=== PATIENT | female | born 1955 | race Caucasian/White ===

== ENCOUNTER 2021-05-06 10:37 | Inpatient (IN) ==
--- NOTE | 2021-05-06 11:03 | ED.PDOC ---
General ED Provider: Dr. JO KITCHEN Chief Complaint: Weakness Stated Complaint: Diarrhea X 4 days. Stated feels very tired and is weak both at rest and with exertion Time Seen by Provider: 05/06/21 10:53 Mode of Arrival: Wheelchair Information Source: Patient Exam Limitations: No limitations Primary Care Provider: LUIS MANUEL COLE Nursing and Triage Documentation Reviewed and Agree: Yes Does patient meet sepsis criteria?: No System Inflammatory Response Syndrome: Not Applicable Sepsis Protocol: For patient's 13 years and over: Temp is 96.8 and below OR 101 and greater Pulse >90 BPM Resp >20/minute Acutely Altered Mental Status Are patient's symptoms suggestive of a new infection, such as: -Pneumonia -Skin, Soft Tissue -Endocarditis -UTI -Bone, Joint Infection -Implantable Device -Acute Abdominal Infection -Wound Infection -Meningitis -Blood Stream Catheter Infection -Unknown GI Complaint Exam Abdominal Pain Complaint/Exam Onset: Gradual Duration: 4 days Symptoms Are: Still present Timing: Constant Initial Severity: Mild Current Severity: Moderate Location of Pain: RUQ, LUQ and Epigastric Radiates To: Reports Back Character: Reports Sharp, Aching and Cramping Aggravating: Reports Food Alleviating: Reports None Associated Signs and Symptoms: Reports Dizziness; Denies Diaphoresis, Fever, Cough, Chest pain, Back pain, Constipation, Blood in stool, Dysuria, Urinary frequency, Decreased urine output, Decreased appetite, Vaginal bleeding, Vaginal discharge, Nausea, Vomiting, Diarrhea, Sore throat or Decreased activity AAA Risk Factors: Reports None Cardiac Risk Factors: Reports None Ectopic Risk Factors: Reports None Ovarian Torsion Risk Factors: Reports None Surgical Obstruction Risk Factors: Reports None Abdominal Findings: Absent Pulsatile mass, Abdominal distention, Unequal femoral pulses, Rebound tenderness, McBurney's Point tender, CVA Tenderness, Hernia or Inguinal swelling Adnexal Exam: Present Normal Findings Differential Diagnoses: Gastroenteritis and Other (COVID) Vomiting/Diarrhea Complaint/Exam Onset/Duration: 4 days Symptoms Are: Worse Initial Severity: Severe Current Severity: Moderate Character of Vomiting: Reports Non-bilious Character of Diarrhea: Reports Watery Aggravating: Reports Food and Liquids Alleviating: Reports None Associated Signs and Symptoms: Reports Light-headedness Related History: Reports Similar episode Last Bowel Movement: This AM Review of Systems Review Of Systems Constitutional: Reports Weakness and Loss of appetite Eyes: Reports No symptoms Ears, Nose, Mouth, Throat: Reports No symptoms Respiratory: Reports Short of air (slight) Cardiac: Reports No symptoms GI: Reports Abdominal pain and Diarrhea : Reports No symptoms, Burning and Dysuria Skin: Reports No symptoms, Bruising and Change in color Neurological: Reports No symptoms Hematologic/Lymphatic: Reports No symptoms and Anemia All Other Systems: Reviewed and Negative COUNTS INCLUDE 234 BEDS AT THE [facility] Medical History (Updated 05/06/21 @ 17:09 by LAYLA ESPINOZA RN) Anxiety Bilateral artificial lens implant Hypertension Family History Mother Diabetes Hypertension FATHER Cancer Hypertension Sister Hypertension PATERNAL GRANDMOTHER Stroke Social History Smoking and tobacco status: Never smoker Alcohol intake: never Substance use type: does not use Yenny/baptism: ZOROASTRIANISM Surgical History H/O knee surgery Status post tonsillectomy Female Reproductive History Menstrual Hx Hysterectomy: No Hx Tubal Ligation: No Physical Exam Physical Exam Appearance: Reports Well-appearing Ill-appearing: Mild Pain Distress: Mild Eyes: Reports MANDIE, EOMI, Conjunctiva clear and Conjunctiva inflammed ENT: Reports Ears normal, Nose normal, Oropharynx normal and TMs Occluded Neck: Supple Respiratory: Reports Airway patent Cardiovascular: Reports RRR and Pulses normal GI/: Reports Soft and Nontender Musculoskeletal: Reports Normal strength, ROM intact and No edema Skin: Reports Warm, Dry and Normal color Neurological: Reports Sensation intact, Motor intact, Reflexes intact, Cranial nerves intact, Alert and Oriented Psychiatric: Reports Affect appropriate and Mood appropriate Interpretation Radiology Interpretation Exam Interpreted: CT Scan (Limited study without contrast.No acute intra- abdominal abnormality. No obstructing ureteral stones. 2. The appendix is normal. 3. Mild distension of the gallbladder. 4. Atherosclerotic disease aorta.) Critical Care Note Critical Care Note Total Critical Care Time (mins): 60 Course Course Hematology/Chemistry: 05/06/21 11:18 05/06/21 11:18 Orders, Labs, Meds: Lab Review 05/06/21 05/06/21 05/06/21 11:18 11:18 11:18 WBC 5.19 RBC 4.87 Hgb 14.2 Hct 42.1 MCV 86.4 MCH 29.2 MCHC 33.7 RDW Coeff of Sarah 12.8 Plt Count 185 Immature Gran % (Auto) 0.4 Neut % (Auto) 64.3 Lymph % (Auto) 19.5 Republic % (Auto) 15.4 H Eos % (Auto) 0.0 Baso % (Auto) 0.4 Neut # (Auto) 3.3 Lymph # (Auto) 1.0 Republic # (Auto) 0.8 Eos # (Auto) 0.0 Baso # (Auto) 0.0 Immature Gran # (Auto) 0.0 ESR 12 Puncture Site Base Excess O2 Saturation ABG pH ABG pCO2 ABG pO2 ABG HCO3 ABG Total CO2 Wil Test Hemoglobin Oxyhemoglobin Carboxyhemoglobin Total Hemoglobin FiO2 % Sodium 132.9 L Potassium 3.53 Chloride 101.8 Carbon Dioxide 21.8 L Anion Gap 12.83 BUN 13.1 Creatinine 0.63 Estimated GFR (MDRD) 94.00 BUN/Creatinine Ratio 20.79 Glucose 123.0 H Lactic Acid Calcium 8.38 L Magnesium 2.07 Total Bilirubin 0.73 AST 55.3 H ALT 50.6 H Alkaline Phosphatase 62.3 Total Protein 6.89 Albumin 4.02 Globulin 2.87 Albumin/Globulin Ratio 1.40 Amylase 89.2 Lipase 170.5 Procalcitonin Urine Opiates Screen Ur Oxycodone Screen Urine Methadone Screen Ur Propoxyphene Screen Ur Barbiturates Screen U Tricyclic Antidepress Ur Phencyclidine Scrn Ur Amphetamine Screen U Methamphetamines Scrn U Benzodiazepines Scrn Urine Cocaine Screen U Cannabinoids Screen Influ A Molecular Assay Influ B Molecular Assay SARS CoV-2 RNA Rapid DANNY 05/06/21 05/06/21 05/06/21 11:18 11:18 11:33 WBC RBC Hgb Hct MCV MCH MCHC RDW Coeff of Sarah Plt Count Immature Gran % (Auto) Neut % (Auto) Lymph % (Auto) Republic % (Auto) Eos % (Auto) Baso % (Auto) Neut # (Auto) Lymph # (Auto) Republic # (Auto) Eos # (Auto) Baso # (Auto) Immature Gran # (Auto) ESR Puncture Site Base Excess O2 Saturation ABG pH ABG pCO2 ABG pO2 ABG HCO3 ABG Total CO2 Wil Test Hemoglobin Oxyhemoglobin Carboxyhemoglobin Total Hemoglobin FiO2 % Sodium Potassium Chloride Carbon Dioxide Anion Gap BUN Creatinine Estimated GFR (MDRD) BUN/Creatinine Ratio Glucose Lactic Acid 1.36 Calcium Magnesium Total Bilirubin AST ALT Alkaline Phosphatase Total Protein Albumin Globulin Albumin/Globulin Ratio Amylase Lipase Procalcitonin < 0.05 Urine Opiates Screen Ur Oxycodone Screen Urine Methadone Screen Ur Propoxyphene Screen Ur Barbiturates Screen U Tricyclic Antidepress Ur Phencyclidine Scrn Ur Amphetamine Screen U Methamphetamines Scrn U Benzodiazepines Scrn Urine Cocaine Screen U Cannabinoids Screen Influ A Molecular Assay Influ B Molecular Assay SARS CoV-2 RNA Rapid DANNY Positive H 05/06/21 05/06/21 05/06/21 11:33 14:05 15:05 WBC RBC Hgb Hct MCV MCH MCHC RDW Coeff of Sarah Plt Count Immature Gran % (Auto) Neut % (Auto) Lymph % (Auto) Republic % (Auto) Eos % (Auto) Baso % (Auto) Neut # (Auto) Lymph # (Auto) Republic # (Auto) Eos # (Auto) Baso # (Auto) Immature Gran # (Auto) ESR Puncture Site Rr Base Excess -3.1 L O2 Saturation 93.5 L ABG pH 7.44 ABG pCO2 31.0 L ABG pO2 66.0 L ABG HCO3 21.1 ABG Total CO2 22.1 Wil Test Pos Hemoglobin 0.8 Oxyhemoglobin 93.4 L Carboxyhemoglobin 1.2 Total Hemoglobin 14.2 FiO2 % 21.0 Sodium Potassium Chloride Carbon Dioxide Anion Gap BUN Creatinine Estimated GFR (MDRD) BUN/Creatinine Ratio Glucose Lactic Acid Calcium Magnesium Total Bilirubin AST ALT Alkaline Phosphatase Total Protein Albumin Globulin Albumin/Globulin Ratio Amylase Lipase Procalcitonin Urine Opiates Screen Negative Ur Oxycodone Screen Negative Urine Methadone Screen Negative Ur Propoxyphene Screen Negative Ur Barbiturates Screen Negative U Tricyclic Antidepress Negative Ur Phencyclidine Scrn Negative Ur Amphetamine Screen Negative U Methamphetamines Scrn Negative U Benzodiazepines Scrn Negative Urine Cocaine Screen Negative U Cannabinoids Screen Negative Influ A Molecular Assay Negative by naat Influ B Molecular Assay Negative by naat SARS CoV-2 RNA Rapid DANNY Orders Category Date Time Status ADMIT PATIENT INPATIENT .TO SCU (MONITORED BED) ADMISSION 05/06/21 15:53 Active ABG DRAW REQUEST DAILY@0600 CARDIO 05/07/21 06:00 Completed ABG DRAW REQUEST DAILY@0600 CARDIO 05/08/21 06:00 Ordered ABG DRAW REQUEST Stat CARDIO 05/06/21 13:54 Completed EKG-(ED ONLY) Stat CARDIO 05/06/21 13:54 Completed CONTINUOUS PULSE OX (NURSING) PULSEOX CARE 05/06/21 15:55 Active NPO REMINDER: IMAGING ONCE CARE 05/06/21 14:39 Completed TELEMETRY MONITORING TELE CARE 05/06/21 15:53 Active TELEMETRY MONITORING TELE CARE 05/06/21 15:55 Completed IV [ED IV/MEDIPORT/POWERPORT] .ONCE EMERGENCY 05/06/21 10:56 Active ABG COOX DAILY@0600 LAB 05/07/21 05:10 Completed ABG COOX DAILY@0600 LAB 05/08/21 06:00 Ordered ABG COOX Stat LAB 05/06/21 14:05 Completed AMYLASE Stat LAB 05/06/21 11:18 Completed BLOOD CULTURE (ED ONLY) Stat LAB 05/06/21 11:18 Results C-REACTIVE PROTEIN DAILY@0600 LAB 05/07/21 05:20 Received C-REACTIVE PROTEIN DAILY@0600 LAB 05/08/21 06:00 Ordered CBC W/ AUTO DIFF Stat LAB 05/06/21 11:18 Completed CMP [COMPREHENSIVE METABOLIC PANEL] Stat LAB 05/06/21 11:18 Completed ESR Stat LAB 05/06/21 11:18 Completed FERRITIN Routine LAB 05/07/21 05:20 Completed FLU A & B MOLECULAR [FLU A/B MOLECULAR] Stat LAB 05/06/21 11:33 Completed LACTIC ACID Stat LAB 05/06/21 11:18 Completed LIPASE Stat LAB 05/06/21 11:18 Completed MAGNESIUM Stat LAB 05/06/21 11:18 Completed PROCALCITONIN Stat LAB 05/06/21 11:18 Completed PT WITH INR DAILY@0600 LAB 05/07/21 05:20 Completed PT WITH INR DAILY@0600 LAB 05/08/21 06:00 Ordered RAPID STREP SCREEN [MOLECULAR GROUP A STREP] Stat LAB 05/06/21 10:57 Ordered SARS COV-2 RNA RAPID DANNY Stat LAB 05/06/21 11:33 Completed TROPONIN I Routine LAB 05/06/21 15:55 Completed URINE DRUG SCREEN (RAPID FOR ED) [DRUG SCREEN, URINE, LAB 05/06/21 15:05 Completed RAPID] Stat 0.9 % Sodium Chloride [Saline Flush] MEDS 05/06/21 10:56 Active 1 syr IVF PRN PRN Dexamethasone Sod Phosphate [Decadron] MEDS 05/07/21 09:00 Active 6 mg IM DAILY Dexamethasone Sod Phosphate [Decadron] MEDS 05/06/21 12:43 Discontinued 6 mg IVP ONCE STA Remdesivir Solution [Veklury] 200 mg MEDS 05/06/21 15:55 Discontinued 0.9 % Sodium Chloride [Sodium Chloride] 250 ml IV ONCE CHEST, 1V AP ONLY Stat RADS 05/06/21 12:[address] ABDOMEN/PELVIS WO CONTRAST Stat RADS 05/06/21 10:[address] CHEST W/CONTRAST Stat RADS 05/06/21 14:39 Completed Medications Generic Name Dose Route Start Last Admin Trade Name Freq PRN Reason Stop Dose Admin Albuterol Sulfate 2 puff 05/07/21 06:00 05/07/21 14:22 Albuterol Sulfate (Ventolin Hfa) 18 Gm 1 Puff With Spacer IH 2 puff RTQID AMALIA Administration Azithromycin 500 mg 05/06/21 21:00 05/06/21 21:27 Azithromycin 250 Mg Tablet PO 05/08/21 21:01 500 mg 2100 AMALIA Administration Bisoprolol Fumarate 5 mg 05/06/21 17:30 05/07/21 09:31 Bisoprolol Fumarate 5 Mg Tablet PO 5 mg DAILY AMALIA Administration Budesonide/Formoterol Fumarate 2 puff 05/06/21 21:00 05/07/21 09:32 Budesonide/Formoterol Fumarate 160/4.5 Mcg Inhaler IH 2 puff BID AMALIA Administration Dexamethasone Sodium Phosphate 6 mg 05/07/21 09:00 05/07/21 09:31 Dexamethasone Sod Phos 10 Mg/Ml Inj IM 6 mg DAILY AMALIA Administration Diazepam 2 mg 05/06/21 17:13 05/07/21 02:49 Diazepam 2 Mg Tablet PO 2 mg .2-3 Times Daily PRN Administration Anxiety Famotidine 40 mg 05/07/21 06:30 05/07/21 05:55 Famotidine 20 Mg Tablet PO 40 mg BIDAC AMALIA Administration Losartan Potassium 100 mg 05/06/21 17:30 05/07/21 09:31 Losartan Potassium 100 Mg Tablet PO 100 mg DAILY AMALIA Administration Sodium Chloride 1 syr 05/06/21 10:56 05/06/21 21:28 0.9% Sodium Chloride 10 Ml Disp.Syrin IVF 1 syr PRN PRN Administration To flush IV Discontinued Medications Generic Name Dose Route Start Last Admin Trade Name Freq PRN Reason Stop Dose Admin Albuterol Sulfate 2 puff 05/06/21 21:00 05/06/21 21:37 Albuterol Sulfate (Ventolin Hfa) 18 Gm 1 Puff With Spacer IH 2 puff TID AMALIA Administration Azithromycin 500 mg 05/07/21 09:00 Azithromycin 250 Mg Tablet PO 05/09/21 09:01 DAILY AMALIA Dexamethasone Sodium Phosphate 6 mg 05/06/21 12:43 05/06/21 12:52 Dexamethasone Sod Phos 10 Mg/Ml Inj IVP 05/06/21 12:44 6 mg ONCE STA Administration REMDESIVIR SOLUTION 200 mg/ 290 mls @ 145 mls/hr 05/06/21 15:55 05/06/21 17:14 Sodium Chloride IV 05/06/21 17:54 Not Given ONCE ONE Vital Signs: Temp Pulse Resp BP Pulse Ox 05/06/21 10:38 97 F L 89 18 146/88 H 95 Discharge Plan Discharge Patient Disposition: ADMITTED INPATIENT Discharge Problem: COVID ED Provider: JO KITCHEN Condition: Stable Physician Progress Note: []
--- NOTE | 2021-05-06 11:23 | CT ---
EXAM: Noncontrast CT of the abdomen and pelvis. HISTORY: Diarrhea for 4 days. COMPARISON: 12/12/2018 TECHNIQUE: Contiguous axial images at 3 mm intervals were obtained from lung bases through the pelvi s. No contrast was given. Coronal reformats were reviewed. FINDINGS: The study is limited without contrast. CHEST: LUNG BASES: Scattered oval ground-glass opacities seen in the right lung base and lingula. HEART: The heart size is within normal limits.Coronary calcifications are seen. ABDOMEN: Evaluation of the soft tissue organs is limited without contrast. LIVER: Noncontrast images of the liver show no solid mass lesion or intrahepatic ductal dilatation. BILIARY: The gallbladder is mildly distended. No gallstones are noted. No pericholecystic fluid o r inflammation. The common bile duct is normal. SPLEEN: The spleen is unremarkable. PANCREAS: The pancreas shows no mass lesion or peripancreatic inflammation. ADRENAL GLANDS: The adrenal glands are normal. RENAL: The kidneys show no hydronephrosis or nephrolithiasis. There are no obstructing ureteral st ones. No solid mass lesions are identified. AORTA: Moderate aortic calcifications are seen. No aneurysm is identified. RETROPERITONEUM: There is no retroperitoneal or mesenteric adenopathy. BOWEL: The bowel is unopacified. There is no obstruction or inflammatory change. There is no free fluid or free air. No significant inflammatory changes are seen. The appendix is identified and is normal. PELVIS: BLADDER: The bladder is not well distended which limits evaluation.. GENITOURINARY STRUCTURES: The uterus and ovaries are unremarkable. OSSEOUS STRUCTURES: Degenerative changes of the lumbar spine. Anterolisthesis of L4 on L5 IMPRESSION 1. Limited study without contrast.No acute intra-abdominal abnormality. No obstructing ureteral sto livia. 2. The appendix is normal. 3. Mild distension of the gallbladder. 4. Atherosclerotic disease aorta. All CT scans are performed using dose optimization techniques as appropriate to the performed exam an d include at least one of the following: Automated exposure control, adjustment of the mA and/or kV according t o size, and the use of iterative reconstruction technique.
[2021-05-06 11:42] LABS: ALANINE AMINOTRANSFERASE 50.6 U/L (0-35); ALBUMIN 4.02 g/dL (3.5-5.0); ALKALINE PHOSPHATASE 62.3 U/L (53-141); AMYLASE 89.2 U/L (30-110); ASPARTATE AMINO TRANSFERASE 55.3 U/L (14-36); BILIRUBIN,TOTAL 0.73 mg/dL (0.2-1.3); BLOOD UREA NITROGEN 13.1 mg/dL (7-17); CALCIUM 8.38 mg/dL (8.4-10.2); CARBON DIOXIDE 21.8 mmol/L (22-30.0); CHLORIDE 101.8 mmol/L (98-107); CREATININE 0.63 mg/dL (0.60-1.30); LIPASE 170.5 U/L (23-300); MAGNESIUM 2.07 mg/dL (1.6-2.3); POTASSIUM 3.53 mmol/L (3.5-5.1); SODIUM 132.9 mmol/L (134.5-145); TOTAL PROTEIN 6.89 g/dL (6.3-8.2)
[2021-05-06 12:04] LABS: ERYTHROCYTE SEDIMENTATION RATE 12 mm/hr (0-20)
[2021-05-06 12:06] LABS: MOLECULAR FLU A NEGATIVE BY NAAT (NEGATIVE); MOLECULAR FLU B NEGATIVE BY NAAT (NEGATIVE)
[2021-05-06 12:20] LABS: BASOPHILS % (AUTO) 0.4 % (0.0-3.0); HEMATOCRIT 42.1 % (37.0-47.0); HEMOGLOBIN 14.2 g/dl (12.0-16.0); IMMATURE GRANULOCYTE % (AUTO) 0.4 % (0.0-5.0); LYMPHOCYTES % (AUTO) 19.5 (10.0-50.0); MEAN CORPUSCULAR HEMOGLOBIN 29.2 pg (27.0-31.0); MEAN CORPUSCULAR HGB CONC 33.7 (31.8-35.4); MEAN CORPUSCULAR VOLUME 86.4 fl (81.0-99.0); MONOCYTES # (AUTO) 0.8 K/uL (0.4-2.0); MONOCYTES % (AUTO) 15.4 (0-10); NEUTROPHILS # (AUTO) 3.3 K/ul (2.0-6.9); NEUTROPHILS % (AUTO) 64.3 % (42.2-75.2); PLATELET COUNT 185 10^3/uL (140-440); RDW COEFFICIENT OF VARIATION 12.8 % (11.6-14.8); RED BLOOD COUNT 4.87 10^6/ul (4.20-5.40); WHITE BLOOD COUNT 5.19 K/ul (4.6-10.2)
--- NOTE | 2021-05-06 12:23 | DI ---
EXAM: Chest one view, frontal view only. HISTORY: Cough. COMPARISON: None. FINDINGS: The heart size is normal. There is no pulmonary vascular congestion. Bilateral areas of consolidation noted. No pleural effusion or pneumothorax is seen. No acute osseous abnormality is i dentified. IMPRESSION: Bilateral pneumonia.
[2021-05-06] MEDS ORDERED: DECADRON IVP STA (12:43)
[2021-05-06 14:16] LABS: ABG O2 HGB 93.4 % (95-100); ABG PH 7.44 (7.35-7.45); BEecf -3.1 (-2.0-3.0); COHb 1.2 (0.5-1.5); HCO3 21.1 (21-28); MetHb 0.8 (0-1.5); TCO2 22.1 (19-24); sO2 93.5 % (94-98); tHb 14.2 g/dl (11.7-17.4)
[2021-05-06 15:23] LABS: AMPHETAMINE SCREEN,URINE NEGATIVE (NEGATIVE); BARBITURATE SCREEN,URINE NEGATIVE (NEGATIVE); BENZODIAZEPINES SCREEN,URINE NEGATIVE (NEGATIVE); CANNABINOID SCREEN,URINE NEGATIVE (NEGATIVE); COCAIN SCREEN,URINE NEGATIVE (NEGATIVE); METHADONE URINE SCREEN NEGATIVE (NEGATIVE); METHAMPHETAMINES SCREEN,URINE NEGATIVE (NEGATIVE); OPIATE SCREEN,URINE NEGATIVE (NEGATIVE); OXYCODONE URINE SCREEN NEGATIVE (NEGATIVE); PHENCYCLIDINE SCREEN,URINE NEGATIVE (NEGATIVE); PROPOXYPHENE URINE SCREEN NEGATIVE (NEGATIVE); TRICYCLIC ANTIDEPRESSANTS URIN NEGATIVE (NEGATIVE)
--- NOTE | 2021-05-06 15:39 | CT ---
EXAM: CT chest with contrast HISTORY: COVID-19 positive patient COMPARISON: Chest x-ray same day TECHNIQUE: Serial axial images of the chest were obtained after 75 ml of Omnipaque IV contrast was a dministered. These were obtained from the lung apices to the upper abdomen. FINDINGS: The thyroid is normal. Visualized vessels the demonstrate mild calcific atherosclerotic d isease. There is no dissection, aneurysm or stenosis. The heart is normal in size without pericardi al effusion. There is no mediastinal, hilar or axillary pathologically enlarged lymph nodes. There is no pneumothorax or pleural effusion. There are patchy bilateral ground-glass opacities. Th ere is no discrete consolidation, nodule or mass. The airways are patent. Limited views of the soft tissues in the upper abdomen demonstrate distended gallbladder. The osseo us structures demonstrate degenerative disease. IMPRESSION: 1. Patchy bilateral ground-glass opacities consistent with atypical pneumonia. 2. Mild calcific atherosclerotic disease. 3. Distended gallbladder. All CT scans are performed using dose optimization techniques as appropriate to the performed exam an d include at least one of the following: Automated exposure control, adjustment of the mA and/or kV according t o size, and the use of iterative reconstruction technique.
[2021-05-06] MEDS ORDERED: VEKLURY 200 MG in SODIUM CHLORIDE 250 ML IV ONE (15:55)
[2021-05-06] MEDS ORDERED: VEKLURY 100 MG in SODIUM CHLORIDE 250 ML IV SCH (16:00)
[2021-05-06 17:07] VITALS: BMI 35.9
[2021-05-06] MEDS ORDERED: VENTOLIN HFA (PER PUFF-WITH SPACER) IH SCH (21:00)
[2021-05-06] MEDS: ZITHROMAX PO SCH (21:27)
[2021-05-06] MEDS: ZEBETA PO SCH (21:28)
[2021-05-06] MEDS: COZAAR PO SCH (21:28)
[2021-05-06] MEDS: SYMBICORT 160-4.5 MCG INHALER IH SCH (21:28)
[2021-05-07] MEDS: VALIUM PO PRN ×2 (02:49→22:34)
[2021-05-07 05:20] LABS: ABG O2 HGB 91.8 % (95-100); ABG PH 7.43 (7.35-7.45); BEecf -2.4 (-2.0-3.0); COHb 2.1 (0.5-1.5); HCO3 21.9 (21-28); MetHb 0.7 (0-1.5); TCO2 22.9 (19-24); sO2 92.1 % (94-98); tHb 13.6 g/dl (11.7-17.4)
[2021-05-07] MEDS: PEPCID PO SCH ×2 (05:55→17:16)
[2021-05-07] MEDS: VENTOLIN HFA (PER PUFF-WITH SPACER) IH SCH ×4 (06:01→20:30)
[2021-05-07 07:05] LABS: PROTHROMBIN TIME 10.6 SEC (9.3-11.0)
[2021-05-07 07:36] LABS: TROPONIN I < 0.012 ng/ml (0.0000-0.120)
[2021-05-07] MEDS ORDERED: ZITHROMAX PO SCH (09:00)
[2021-05-07] MEDS: DECADRON IM SCH (09:31)
[2021-05-07] MEDS: COZAAR PO SCH (09:31)
[2021-05-07] MEDS: ZEBETA PO SCH (09:31)
[2021-05-07] MEDS: SYMBICORT 160-4.5 MCG INHALER IH SCH ×2 (09:32→21:54)
[2021-05-07] MEDS: ZITHROMAX PO SCH (21:42)
[2021-05-08 05:15] LABS: BASOPHILS % (AUTO) 0.2 % (0.0-3.0); HEMATOCRIT 39.7 % (37.0-47.0); HEMOGLOBIN 13.3 g/dl (12.0-16.0); IMMATURE GRANULOCYTE % (AUTO) 0.2 % (0.0-5.0); LYMPHOCYTES % (AUTO) 11.9 (10.0-50.0); MEAN CORPUSCULAR HEMOGLOBIN 29.2 pg (27.0-31.0); MEAN CORPUSCULAR HGB CONC 33.5 (31.8-35.4); MEAN CORPUSCULAR VOLUME 87.1 fl (81.0-99.0); MONOCYTES # (AUTO) 0.9 K/uL (0.4-2.0); MONOCYTES % (AUTO) 11.3 (0-10); NEUTROPHILS # (AUTO) 6.2 K/ul (2.0-6.9); NEUTROPHILS % (AUTO) 76.4 % (42.2-75.2); PLATELET COUNT 220 10^3/uL (140-440); RED BLOOD COUNT 4.56 10^6/ul (4.20-5.40); WHITE BLOOD COUNT 8.08 K/ul (4.6-10.2)
[2021-05-08 05:21] LABS: ALANINE AMINOTRANSFERASE 55.8 U/L (0-35); ALBUMIN 3.71 g/dL (3.5-5.0); ALKALINE PHOSPHATASE 58.8 U/L (53-141); BILIRUBIN,TOTAL 0.59 mg/dL (0.2-1.3); CALCIUM 8.83 mg/dL (8.4-10.2); CARBON DIOXIDE 22.9 mmol/L (22-30.0); CHLORIDE 105.6 mmol/L (98-107); CREATININE 0.56 mg/dL (0.60-1.30); GLUCOSE 122.6 mg/dL (74-106); POTASSIUM 3.92 mmol/L (3.5-5.1); SODIUM 135.4 mmol/L (134.5-145); TOTAL PROTEIN 6.49 g/dL (6.3-8.2)
[2021-05-08 05:29] LABS: PROTHROMBIN TIME 9.9 SEC (9.3-11.0)
[2021-05-08] MEDS: VENTOLIN HFA (PER PUFF-WITH SPACER) IH SCH ×4 (05:54→20:10)
[2021-05-08] MEDS: PEPCID PO SCH ×2 (05:54→17:04)
[2021-05-08 06:23] LABS: ABG O2 HGB 86.9 % (95-100); ABG PH 7.46 (7.35-7.45); BEecf -1.8 (-2.0-3.0); COHb 2.4 (0.5-1.5); MetHb 0.8 (0-1.5); sO2 86.6 % (94-98); tHb 13.5 g/dl (11.7-17.4)
[2021-05-08] MEDS: COZAAR PO SCH (08:49)
[2021-05-08] MEDS: ZEBETA PO SCH (08:49)
[2021-05-08] MEDS: DECADRON IM SCH (08:50)
[2021-05-08] MEDS: SYMBICORT 160-4.5 MCG INHALER IH SCH ×2 (08:55→20:24)
[2021-05-08 09:07] LABS: ABG O2 HGB 92.4 % (95-100); BEecf -2.1 (-2.0-3.0); COHb 2.1 (0.5-1.5); HCO3 21.1 (21-28); MetHb 0.8 (0-1.5); TCO2 21.9 (19-24); sO2 93.5 % (94-98); tHb 13.5 g/dl (11.7-17.4)
--- NOTE | 2021-05-08 09:12 | PCM.PROG ---
Attending Provider: ATTENDING PROVIDER: Dr. LUIS MANUEL COLE DATE OF SERVICE: 05/08/21 SUBJECTIVE: This 66 year old /WHITE F was hospitalized 05/06/21 with COVID pneumonia and respiratory failure. The patient arterial blood gasses on room air shows hypoxemia. The patient feels good as usual says she is much better than what she was. Appetite is normal. REVIEW OF SYSTEMS: CONSTITUTIONAL: No night sweats. No fatigue, malaise, lethargy. No fever or chills. HEENT: Eyes: No visual changes. No eye pain. No eye discharge. ENT: No runny nose. No epistaxis. No sinus pain. No odynophagia. No congestion. RESPIRATORY: No cough, no congestion. No hemoptysis. No shortness of breath. CARDIOVASCULAR: No angina symptoms. No CHF symptoms. No atypical chest pain for CAD. No palpitations. No orthopnea.. GASTROINTESTINAL: No abdominal pain. No nausea or vomiting. No diarrhea or con stipation. No hematemesis. No hematochezia. GENITOURINARY: No urgency. No frequency. No dysuria. No hematuria. No obstructive symptoms. No discharge. No pain. No significant abnormal bleeding. MUSCULOSKELETAL: No musculoskeletal pain; no joint swelling. NEUROLOGICAL: Awake, alert, oriented to time, place and person. No headache. No neck pain. No syncope. No seizures. No dizziness. PSYCHIATRIC: Not anxious. No depression. No suicidal thoughts. No homicidal thoughts. SKIN: No rash. No lesions. No wounds. ENDOCRINE: No unexplained weight loss. No weight gain. HEMATOLOGIC/LYMPHATIC: No anemia. No purpura. No petechiae. No prolonged or excessive bleeding. No palpable lymph nodes. PHYSICAL EXAMINATION: GENERAL: The patient is awake, alert and oriented, lying in bed in no distress. VITAL SIGNS: Temperature 98.0 F, Pulse 64, Respiratory Rate 18, BP 132/75, Pulse Ox 95% HEENT: Head normocephalic, atraumatic. Eyes: Extraocular muscles are intact. Pupils are equal, round and reactive to light and accommodation. Ears: No lesions. Nose appeared normal. Throat: No exudate or erythema. NECK: Supple. No JVD, no carotid bruit. No lymphadenopathy or thyromegaly. LUNGS: Good air entry. Clear to auscultation. Percussion note normal. Chest symmetrical. HEART: S1, S2, no S3. No murmurs. No cyanosis or clubbing. No ascites. Pulses: Dorsalis pedis and posterior tibial pulses +1 to +2 both sides. ABDOMEN: Soft. Non-tender. Bowel sounds active. No CVA tenderness. No mass felt. EXTREMITIES: No edema. Full range of motion of all extremities, equal. NEUROLOGIC: No focal deficit. Cranial nerves II through XII are grossly intact. No headache, no double vision or headache. SKIN: Warm and dry. Intact. Turgor-normal. LYMPHATIC: No palpable lymph nodes/no lymphedema. MUSCULOSKELETAL: Normal joints with no swelling. Muscle tone is normal. LAB REVIEW: 05/08/21 04:40 05/08/21 04:40 05/08/21 06:00: Puncture Site Lrad, Base Excess -1.8, O2 Saturation 86.6 L, ABG pH 7.46 H, ABG pCO2 31.0 L, ABG pO2 49.0 L*, ABG HCO3 22.0, ABG Total CO2 23.0, Wil Test +, Hemoglobin 0.8, Oxyhemoglobin 86.9 L, Carboxyhemoglobin 2.4 H, Total Hemoglobin 13.5, O2 Delivery Device Ra, FiO2 % 21.0 05/08/21 04:40: Sodium 135.4, Potassium 3.92, Chloride 105.6, Carbon Dioxide 22.9, Anion Gap 10.82, BUN 15.0, Creatinine 0.56 L, Estimated GFR (MDRD) 108.00, BUN/Creatinine Ratio 26.78, Glucose 122.6 H, Calcium 8.83, Total Bilirubin 0.59, AST 55.0 H, ALT 55.8 H, Alkaline Phosphatase 58.8, Total Protein 6.49, Albumin 3.71, Globulin 2.78, Albumin/Globulin Ratio 1.33 05/08/21 04:40: WBC 8.08, RBC 4.56, Hgb 13.3, Hct 39.7, MCV 87.1, MCH 29.2, MCHC 33.5, RDW Coeff of Sarah 13.0, Plt Count 220, Immature Gran % (Auto) 0.2, Neut % (Auto) 76.4 H, Lymph % (Auto) 11.9, Steele % (Auto) 11.3 H, Eos % (Auto) 0.0, Baso % (Auto) 0.2, Neut # (Auto) 6.2, Lymph # (Auto) 1.0, Steele # (Auto) 0.9, Eos # (Auto) 0.0, Baso # (Auto) 0.0, Immature Gran # (Auto) 0.0 05/08/21 04:40: PT 9.9, INR 0.95 05/07/21 06:20: Ferritin 729.00 H 05/07/21 06:20: D-Dimer 1176.47 H ASSESSMENT: Please see below. 1. Acute respiratory failure from COVID pneumonia 2. History of hypertension PLAN: 1. Continue to given antibiotics, oxygen and steroids. The patient refused Remdesivir. Plan and coordination of the patient's care discussed in the presence of Transmission Calibration Engineer and nurse. CONDITION: Stable SCRIBED BY: CORNEL REA Senior Mortgage Loan Processor scribed while in presence of service performed by Dr. LUIS MANUEL COLE on 05/08/21 ([id number])
[2021-05-08] MEDS: ELIQUIS PO SCH ×2 (09:26→20:23)
[2021-05-08] MEDS: ROCEPHIN 1 GM/50 ML D5W 1 GM/50 ML BAG IV SCH (09:26)
--- NOTE | 2021-05-08 13:16 | HP ---
DATE OF SERVICE: 05/06/2021 REASON FOR HOSPITALIZATION: COVID 19 with fatigue, shortness of breath and dehydration. HISTORY OF PRESENT ILLNESS: 66 year old white female came to the emergency room along with with complaint of being mild short of breath, cough, congestion with COVID 19 status. The patient's symptoms for 7 days. REVIEW OF SYSTEMS: CONSTITUTIONAL: No night sweats. Fatigue and tired. No fever or chills. HEENT: Eyes: No visual changes. No eye pain. No eye discharge. ENT: No runny nose. No epistaxis. No sinus pain. No sore throat. No odynophagia. No ear pain. No congestion. RESPIRATORY: Mild cough, congestion. No hemoptysis. Shortness of breath. CARDIOVASCULAR: No angina symptoms. No CHF symptoms. No atypical chest pain for CAD. No palpitations. No PND. No orthopnea. GASTROINTESTINAL: No abdominal pain. No nausea or vomiting. No diarrhea or constipation. No hematemesis. No hematochezia. Poor appetite. GENITOURINARY: No urgency. No frequency. No dysuria. No hematuria. No obstructive symptoms. No discharge. No pain. No significant abnormal bleeding. MUSCULOSKELETAL: No musculoskeletal pain. No joint swelling. No arthritis. NEUROLOGICAL: No headache. No neck pain. No syncope. No seizures. No dizziness. PSYCHIATRIC: Not anxious. No depression. No suicidal thoughts. No homicidal thoughts. SKIN: No rash. No lesions. No wounds. ENDOCRINE: No unexplained weight loss. No weight gain. HEMATOLOGIC/LYMPHATIC: No anemia. No purpura. No petechiae. No prolonged or excessive bleeding. No palpable lymph nodes. PERSONAL/FAMILY/SOCIAL HISTORY: The patient used to smoke but quit. and lives with . Does all activity of daily living. MEDICATIONS: Diazepam 2mg TID PRN for dizziness Bisoprolol 5mg PO daily Losartan 100mg PO daily ALLERGIES: None PHYSICAL EXAMINATION: VITAL SIGNS: Temperature 98.4, pulse 80, respiratory rate 15, blood pressure 128/78. HEENT: Head normocephalic, atraumatic. Eyes: Extraocular muscles are intact. Pupils are equal, round and reactive to light and accommodation. Ears: No lesions. Nose appeared normal. Throat: No exudate or erythema. NECK: Supple. No JVD, no carotid bruit. No lymphadenopathy or thyromegaly. LUNGS: Clear to auscultation. Percussion note normal. Chest symmetrical. HEART: S1, S2, no S3. No murmur. No cyanosis or clubbing. No ascites. Pulses: Dorsalis pedis and posterior tibial pulses +1 to +2 bilaterally. ABDOMEN: Soft. Nontender. Bowel sounds active. No CVA tenderness. No mass felt. EXTREMITIES: No edema. Full range of motion of all extremities, equal. NEUROLOGIC: No focal deficit. Cranial nerves II through XII are grossly intact. No headache, no double vision or headache. SKIN: Not dry. Intact. Turgor - normal. LYMPHATIC: No palpable lymph nodes/no lymphedema. MUSCULOSKELETAL: Normal joints with no swelling. Muscle tone is normal. LABS: EKG sinus rhythm, no acute changes. CBC and CMP all negative. Arterial blood gasses oxygen saturation more than 90% on room air. The patient had CT scan of the abdomen which was practically negative. Lactic acid level was normal. Sodium 132, creatinine 0.6, BUN 12. AST and ALT 55-50 respectively mildly elevated. Oxytonin and lactic acid level negative. Chest x-ray showed bilateral pneumonia. U/A negative. SED RATE 12 normal. Rapid flu A and B negative. SARS positive. CT of of the chest showed patchy bilateral ground glass opacities consistent with atypical pneumonia. Arterial blood gasses on room air showed oxygen saturation 94% with O2 of 66. ASSESSMENT: 1. Diarrhea and Dehydration with COVID positive 2. Bilateral pneumonia, atypical could be from COVID 3. History of hypertension 4. History of B12 deficiency 5. History of hematuria followed by Dr. Najera. Had cystoscopy that was negative. 6. History of left total knee replacement 7. Generalized anxiety disorder 8. BMI 37, at 5'10 weight 260 pounds with almost Morbid obesity. PLAN: 1. Admit the patient 2. Remdesivir 3. Start Steroids 4. CPAP 5. Watch all the markers like CRP, LDH, D-dimer to be done daily. CONDITION: Stable PROGNOSIS: Guarded. TIME SPENT: More than 70 minutes. MTDD
--- NOTE | 2021-05-08 13:52 | PN ---
DATE OF SERVICE: 05/07/21 SUBJECTIVE: 66 year old white female hospitalized with COVID with dehydration, diarrhea and hypoxemia. The patient's saturation has been staying more than 90% on room air. This morning the patient's oxygen saturation is 95%. The patient says that she is feeling 100% better. REVIEW OF SYSTEMS: CONSTITUTIONAL: No night sweats. No fatigue, malaise, lethargy. No fever or chills. HEENT: Eyes: No visual changes. No eye pain. No eye discharge. ENT: No runny nose. No epistaxis. No sinus pain. No sore throat. No odynophagia. No congestion. RESPIRATORY: No cough, no congestion. No hemoptysis. No shortness of breath. CARDIOVASCULAR: No angina symptoms. No CHF symptoms. No atypical chest pain for CAD. No palpitations. No PND. No orthopnea. GASTROINTESTINAL: No abdominal pain. No nausea or vomiting. No diarrhea or constipation. No hematemesis. No hematochezia. GENITOURINARY: No urgency. No frequency. No dysuria. No hematuria. No obstructive symptoms. No discharge. No pain. No significant abnormal bleeding. MUSCULOSKELETAL: No musculoskeletal pain; no joint swelling. NEUROLOGICAL: No headache. No neck pain. No syncope. No seizures. No dizziness. PSYCHIATRIC: Not anxious. No depression. No suicidal thoughts. No homicidal thoughts. SKIN: No rash. No lesions. No wounds. ENDOCRINE: No unexplained weight loss. No weight gain. HEMATOLOGIC/LYMPHATIC: No anemia. No purpura. No petechiae. No prolonged or excessive bleeding. No palpable lymph nodes. PHYSICAL EXAMINATION: VITALS: Temperature 97.7, pulse 62, respiratory rate 18. blood pressure 127/73 and pulse ox 95% on room air. HEENT: Head normocephalic, atraumatic. Eyes: Extraocular muscles are intact. Pupils are equal, round and reactive to light and accommodation. Ears: No lesions. Nose appeared normal. Throat: No exudate or erythema. NECK: Supple. No JVD, no carotid bruit. No lymphadenopathy or thyromegaly. LUNGS: Clear to auscultation. Percussion note normal. Chest symmetrical. HEART: S1, S2, no S3. No murmurs. No cyanosis or clubbing. No ascites. Pulses: Dorsalis pedis and posterior tibial pulses +1 to +2 bilaterally. ABDOMEN: Soft. Nontender. Bowel sounds active. No CVA tenderness. No mass felt. EXTREMITIES: No edema. Full range of motion of all extremities, equal. NEUROLOGIC: No focal deficit. Cranial nerves II through XII are grossly intact. No headache. No double vision. SKIN: Not dry. Intact. Turgor - normal. LYMPHATIC: No palpable lymph nodes/no lymphedema. MUSCULOSKELETAL: Normal joints with no swelling. Muscle tone is normal. LABS: Arterial blood gasses this morning showed pO2 of 62 with CO2 of 33, pH 7.43 with 92% saturation. ASSESSMENT: 1. COVID 19 status was relative hypoxemia 2. Dehydration with diarrhea which seems to have resolved 3. Overall cardiovascular and respiratory status seems to be a lot better and feeling a lot better. PLAN: 1. Hydration status has improved 2. Appetite is practically normal 3. Continue Symbicort and Dexamethasone and her antihypertensive medications CONDITION: Stable. TIME SPENT: More than 30 minutes. Plan and coordination of the patient's care discussed in the presence of nurse. TAMIA
[2021-05-08] MEDS: ZITHROMAX PO SCH (20:23)
[2021-05-09] MEDS: VENTOLIN HFA (PER PUFF-WITH SPACER) IH SCH ×4 (05:00→19:48)
[2021-05-09 05:11] LABS: BASOPHILS % (AUTO) 0.1 % (0.0-3.0); HEMATOCRIT 39.3 % (37.0-47.0); HEMOGLOBIN 12.9 g/dl (12.0-16.0); IMMATURE GRANULOCYTE # (AUTO) 0.1 (0.0-1.0); IMMATURE GRANULOCYTE % (AUTO) 0.6 % (0.0-5.0); LYMPHOCYTES % (AUTO) 10.4 (10.0-50.0); MEAN CORPUSCULAR HEMOGLOBIN 28.9 pg (27.0-31.0); MEAN CORPUSCULAR HGB CONC 32.8 (31.8-35.4); MEAN CORPUSCULAR VOLUME 87.9 fl (81.0-99.0); MONOCYTES # (AUTO) 0.9 K/uL (0.4-2.0); MONOCYTES % (AUTO) 9.5 (0-10); NEUTROPHILS # (AUTO) 7.5 K/ul (2.0-6.9); NEUTROPHILS % (AUTO) 79.4 % (42.2-75.2); PLATELET COUNT 245 10^3/uL (140-440); RDW COEFFICIENT OF VARIATION 13.2 % (11.6-14.8); RED BLOOD COUNT 4.47 10^6/ul (4.20-5.40); WHITE BLOOD COUNT 9.46 K/ul (4.6-10.2)
[2021-05-09 05:27] LABS: ALANINE AMINOTRANSFERASE 51.1 U/L (0-35); ALBUMIN 3.74 g/dL (3.5-5.0); ALKALINE PHOSPHATASE 58.4 U/L (53-141); ASPARTATE AMINO TRANSFERASE 59.6 U/L (14-36); BILIRUBIN,TOTAL 0.64 mg/dL (0.2-1.3); BLOOD UREA NITROGEN 14.1 mg/dL (7-17); CALCIUM 8.88 mg/dL (8.4-10.2); CARBON DIOXIDE 24.9 mmol/L (22-30.0); CHLORIDE 105.3 mmol/L (98-107); CREATININE 0.52 mg/dL (0.60-1.30); GLUCOSE 130.5 mg/dL (74-106); POTASSIUM 4.11 mmol/L (3.5-5.1); SODIUM 137.3 mmol/L (134.5-145); TOTAL PROTEIN 6.74 g/dL (6.3-8.2)
[2021-05-09] MEDS: PEPCID PO SCH ×2 (05:49→17:14)
[2021-05-09 05:52] LABS: ERYTHROCYTE SEDIMENTATION RATE 28 mm/hr (0-20)
[2021-05-09 06:49] LABS: ABG O2 HGB 93.2 % (95-100); ABG PH 7.48 (7.35-7.45); BEecf -1.2 (-2.0-3.0); COHb 1.9 (0.5-1.5); HCO3 22.3 (21-28); MetHb 0.9 (0-1.5); TCO2 23.2 (19-24); sO2 93.7 % (94-98); tHb 13.5 g/dl (11.7-17.4)
--- NOTE | 2021-05-09 08:36 | PCM.PROG ---
Attending Provider: ATTENDING PROVIDER: Dr. LUIS MANUEL COLE DATE OF SERVICE: 05/09/21 SUBJECTIVE: This 66 year old /WHITE F was hospitalized 05/06/21 with COVID pneumonia and developed respiratory failure in the hospital. She declined Remdesivir. Continue steroids, antibiotics and inhalers. Feeling better. No PND. No orthopnea and No shortness of breath. Blood gasses done showed oxygen saturation deteriorating with saturation 87% on 3 liters and was moved up to 5 liters now saturation is 96%. REVIEW OF SYSTEMS: CONSTITUTIONAL: No night sweats. No fatigue, malaise, lethargy. No fever or chills. HEENT: Eyes: No visual changes. No eye pain. No eye discharge. ENT: No runny nose. No epistaxis. No sinus pain. No odynophagia. No congestion. RESPIRATORY: No cough, no congestion. No hemoptysis. No shortness of breath. CARDIOVASCULAR: No angina symptoms. No CHF symptoms. No atypical chest pain for CAD. No palpitations. No orthopnea.. GASTROINTESTINAL: No abdominal pain. No nausea or vomiting. No diarrhea or constipation. No hematemesis. No hematochezia. GENITOURINARY: No urgency. No frequency. No dysuria. No hematuria. No obstructive symptoms. No discharge. No pain. No significant abnormal bleeding. MUSCULOSKELETAL: No musculoskeletal pain; no joint swelling. NEUROLOGICAL: Awake, alert, oriented to time, place and person. No headache. No neck pain. No syncope. No seizures. No dizziness. PSYCHIATRIC: Not anxious. No depression. No suicidal thoughts. No homicidal thoughts. SKIN: No rash. No lesions. No wounds. ENDOCRINE: No unexplained weight loss. No weight gain. HEMATOLOGIC/LYMPHATIC: No anemia. No purpura. No petechiae. No prolonged or excessive bleeding. No palpable lymph nodes. PHYSICAL EXAMINATION: GENERAL: The patient is awake, alert and oriented, lying in bed in no distress. VITAL SIGNS: Temperature 98.3 F, Pulse 66, Respiratory Rate 20, BP 121/76, Pulse Ox 93% HEENT: Head normocephalic, atraumatic. Eyes: Extraocular muscles are intact. Pupils are equal, round and reactive to light and accommodation. Ears: No lesions. Nose appeared normal. Throat: No exudate or erythema. NECK: Supple. No JVD, no carotid bruit. No lymphadenopathy or thyromegaly. LUNGS: Clear to auscultation. Percussion note normal. Chest symmetrical. HEART: S1, S2, no S3. No murmurs. No cyanosis or clubbing. No ascites. Pu lses: Dorsalis pedis and posterior tibial pulses +1 to +2 both sides. ABDOMEN: Soft. Non-tender. Bowel sounds active. No CVA tenderness. No mass felt. EXTREMITIES: No edema. Full range of motion of all extremities, equal. NEUROLOGIC: No focal deficit. Cranial nerves II through XII are grossly intact. No headache, no double vision or headache. SKIN: Warm and dry. Intact. Turgor-normal. LYMPHATIC: No palpable lymph nodes/no lymphedema. MUSCULOSKELETAL: Normal joints with no swelling. Muscle tone is normal. LAB REVIEW: 05/09/21 05:00 05/09/21 05:00 05/09/21 05:00: Puncture Site Lrad, Base Excess -1.2, O2 Saturation 93.7 L, ABG pH 7.48 H, ABG pCO2 30.0 L, ABG pO2 64.0 L, ABG HCO3 22.3, ABG Total CO2 23.2, Wil Test Pos, Hemoglobin 0.9, Oxyhemoglobin 93.2 L, Carboxyhemoglobin 1.9 H, Total Hemoglobin 13.5, O2 Delivery Device Cannula, Oxygen Liter Flow 5.00 05/09/21 05:00: Sodium 137.3, Potassium 4.11, Chloride 105.3, Carbon Dioxide 24.9, Anion Gap 11.21, BUN 14.1, Creatinine 0.52 L, Estimated GFR (MDRD) 117.00, BUN/Creatinine Ratio 27.11, Glucose 130.5 H, Calcium 8.88, Ferritin 860.00 H, Total Bilirubin 0.64, AST 59.6 H, ALT 51.1 H, Alkaline Phosphatase 58.4, Total Protein 6.74, Albumin 3.74, Globulin 3.00, Albumin/Globulin Ratio 1.24 05/09/21 05:00: WBC 9.46, RBC 4.47, Hgb 12.9, Hct 39.3, MCV 87.9, MCH 28.9, MCHC 32.8, RDW Coeff of Sarah 13.2, Plt Count 245, Immature Gran % (Auto) 0.6, Neut % (Auto) 79.4 H, Lymph % (Auto) 10.4, George % (Auto) 9.5, Eos % (Auto) 0.0, Baso % (Auto) 0.1, Neut # (Auto) 7.5 H, Lymph # (Auto) 1.0, George # (Auto) 0.9, Eos # (Auto) 0.0, Baso # (Auto) 0.0, Immature Gran # (Auto) 0.1 05/09/21 05:00: D-Dimer 701.89 H 05/09/21 05:00: ESR 28 H 05/08/21 08:00: Puncture Site Lbracj, Base Excess -2.1 L, O2 Saturation 93.5 L, ABG pH 7.50 H, ABG pCO2 27.0 L, ABG pO2 62.0 L, ABG HCO3 21.1, ABG Total CO2 21.9, Wil Test +, Hemoglobin 0.8, Oxyhemoglobin 92.4 L, Carboxyhemoglobin 2.1 H, Total Hemoglobin 13.5, O2 Delivery Device Cannula, Oxygen Liter Flow 2.00, Fi O2 % 28.0 05/08/21 04:40: Ferritin 777.00 H 05/08/21 04:40: D-Dimer 837.24 H 05/08/21 04:40: C-Reactive Prot, Quant 10 05/08/21 04:40: Lactate Dehydrogenase 370 H ASSESSMENT: Please see below. 1. COVID pneumonia with respiratory failure requiring 5 liters of oxygen to maintain saturation. PLAN: 1. Continue Rocephin and antibiotic, z-pack, steroids and inhalers. Plan and coordination of the patient's care discussed in the presence of Rn Gyn and nurse. CONDITION: Stable SCRIBED BY: Reba MAYNARD scribed while in presence of service performed by Dr. LUIS MANUEL COLE on 05/09/21 (0800)
[2021-05-09] MEDS: ZEBETA PO SCH (09:03)
[2021-05-09] MEDS: ROCEPHIN 1 GM/50 ML D5W 1 GM/50 ML BAG IV SCH (09:03)
[2021-05-09] MEDS: COZAAR PO SCH (09:03)
[2021-05-09] MEDS: ELIQUIS PO SCH ×2 (09:04→21:03)
[2021-05-09] MEDS: DECADRON IM SCH (09:04)
[2021-05-09] MEDS: SYMBICORT 160-4.5 MCG INHALER IH SCH ×2 (09:15→21:24)
[2021-05-09] MEDS: XANAX PO SCH ×4 (12:38→21:03)
[2021-05-10 04:20] LABS: C-REACTIVE PROTEIN 41 mg/L (0-10)
[2021-05-10] MEDS: VENTOLIN HFA (PER PUFF-WITH SPACER) IH SCH ×4 (05:10→20:20)
[2021-05-10 05:38] LABS: BASOPHILS % (AUTO) 0.1 % (0.0-3.0); HEMATOCRIT 37.7 % (37.0-47.0); HEMOGLOBIN 12.5 g/dl (12.0-16.0); IMMATURE GRANULOCYTE % (AUTO) 0.4 % (0.0-5.0); LYMPHOCYTES # (AUTO) 0.8 K/uL (0.60-3.4); LYMPHOCYTES % (AUTO) 8.1 (10.0-50.0); MEAN CORPUSCULAR HGB CONC 33.2 (31.8-35.4); MEAN CORPUSCULAR VOLUME 87.5 fl (81.0-99.0); MONOCYTES # (AUTO) 0.8 K/uL (0.4-2.0); NEUTROPHILS # (AUTO) 8.5 K/ul (2.0-6.9); NEUTROPHILS % (AUTO) 83.4 % (42.2-75.2); PLATELET COUNT 283 10^3/uL (140-440); RED BLOOD COUNT 4.31 10^6/ul (4.20-5.40)
[2021-05-10 05:51] LABS: ALANINE AMINOTRANSFERASE 51.3 U/L (0-35); ALBUMIN 3.51 g/dL (3.5-5.0); ALKALINE PHOSPHATASE 55.8 U/L (53-141); ASPARTATE AMINO TRANSFERASE 45.2 U/L (14-36); BILIRUBIN,TOTAL 0.8 mg/dL (0.2-1.3); BLOOD UREA NITROGEN 11.9 mg/dL (7-17); CALCIUM 8.71 mg/dL (8.4-10.2); CARBON DIOXIDE 22.5 mmol/L (22-30.0); CHLORIDE 105.3 mmol/L (98-107); CREATININE 0.45 mg/dL (0.60-1.30); GLUCOSE 126.4 mg/dL (74-106); POTASSIUM 4.1 mmol/L (3.5-5.1); SODIUM 136.5 mmol/L (134.5-145); TOTAL PROTEIN 6.56 g/dL (6.3-8.2)
[2021-05-10] MEDS: PEPCID PO SCH ×2 (05:55→17:08)
[2021-05-10 06:19] LABS: ERYTHROCYTE SEDIMENTATION RATE 39 mm/hr (0-20)
[2021-05-10 06:46] LABS: ABG O2 HGB 89.8 % (95-100); ABG PH 7.48 (7.35-7.45); BEecf -0.4 (-2.0-3.0); COHb 1.8 (0.5-1.5); HCO3 23.1 (21-28); MetHb 0.7 (0-1.5); TCO2 24.1 (19-24); sO2 90.5 % (94-98); tHb 13.7 g/dl (11.7-17.4)
[2021-05-10] MEDS: ROCEPHIN 1 GM/50 ML D5W 1 GM/50 ML BAG IV SCH (09:13)
[2021-05-10] MEDS: COZAAR PO SCH (09:14)
[2021-05-10] MEDS: ZEBETA PO SCH (09:14)
[2021-05-10] MEDS: DECADRON IM SCH (09:14)
[2021-05-10] MEDS: XANAX PO SCH ×4 (09:14→21:11)
[2021-05-10] MEDS: ELIQUIS PO SCH ×2 (09:15→21:11)
[2021-05-10] MEDS: SYMBICORT 160-4.5 MCG INHALER IH SCH ×2 (09:20→21:00)
[2021-05-11 04:10] LABS: C-REACTIVE PROTEIN 56 mg/L (0-10)
[2021-05-11] MEDS: PEPCID PO SCH ×2 (05:40→18:17)
[2021-05-11 05:58] LABS: BASOPHILS % (AUTO) 0.5 % (0.0-3.0); HEMATOCRIT 42.9 % (37.0-47.0); HEMOGLOBIN 13.7 g/dl (12.0-16.0); IMMATURE GRANULOCYTE # (AUTO) 0.1 (0.0-1.0); IMMATURE GRANULOCYTE % (AUTO) 1.2 % (0.0-5.0); LYMPHOCYTES # (AUTO) 0.9 K/uL (0.60-3.4); LYMPHOCYTES % (AUTO) 11.1 (10.0-50.0); MEAN CORPUSCULAR HEMOGLOBIN 28.8 pg (27.0-31.0); MEAN CORPUSCULAR HGB CONC 31.9 (31.8-35.4); MEAN CORPUSCULAR VOLUME 90.1 fl (81.0-99.0); MONOCYTES # (AUTO) 0.9 K/uL (0.4-2.0); MONOCYTES % (AUTO) 10.6 (0-10); NEUTROPHILS # (AUTO) 6.4 K/ul (2.0-6.9); NEUTROPHILS % (AUTO) 76.6 % (42.2-75.2); PLATELET COUNT 159 10^3/uL (140-440); RED BLOOD COUNT 4.76 10^6/ul (4.20-5.40); WHITE BLOOD COUNT 8.31 K/ul (4.6-10.2)
[2021-05-11 06:11] LABS: ALANINE AMINOTRANSFERASE 70.6 U/L (0-35); ALBUMIN 3.48 g/dL (3.5-5.0); ALKALINE PHOSPHATASE 54.3 U/L (53-141); ASPARTATE AMINO TRANSFERASE 50.8 U/L (14-36); BILIRUBIN,TOTAL 0.94 mg/dL (0.2-1.3); BLOOD UREA NITROGEN 13.1 mg/dL (7-17); CALCIUM 8.92 mg/dL (8.4-10.2); CARBON DIOXIDE 19.6 mmol/L (22-30.0); CHLORIDE 106.9 mmol/L (98-107); CREATININE 0.41 mg/dL (0.60-1.30); GLUCOSE 148.3 mg/dL (74-106); POTASSIUM 4.05 mmol/L (3.5-5.1); SODIUM 134.8 mmol/L (134.5-145); TOTAL PROTEIN 6.69 g/dL (6.3-8.2)
[2021-05-11] MEDS: VENTOLIN HFA (PER PUFF-WITH SPACER) IH SCH ×4 (07:06→20:06)
[2021-05-11 07:08] LABS: ABG O2 HGB 94.8 % (95-100); BEecf 0.2 (-2.0-3.0); COHb 2.5 (0.5-1.5); HCO3 23.4 (21-28); MetHb 0.8 (0-1.5); TCO2 24.3 (19-24); sO2 97.4 % (94-98)
[2021-05-11 08:33] LABS: ERYTHROCYTE SEDIMENTATION RATE 40 mm/hr (0-20)
[2021-05-11] MEDS: DECADRON IM SCH (09:29)
[2021-05-11] MEDS: ZEBETA PO SCH (09:29)
[2021-05-11] MEDS: DOXYCYCLINE HYCLATE PO SCH ×2 (09:30→20:36)
[2021-05-11] MEDS: XANAX PO SCH ×4 (09:30→20:36)
[2021-05-11] MEDS: SYMBICORT 160-4.5 MCG INHALER IH SCH ×2 (09:30→21:06)
[2021-05-11] MEDS: ELIQUIS PO SCH ×2 (09:30→20:36)
[2021-05-11] MEDS: COZAAR PO SCH (09:30)
--- NOTE | 2021-05-11 10:11 | PCM.PROG ---
Attending Provider: ATTENDING PROVIDER: Dr. LUIS MANUEL COLE This patient is seen with Bisi Montanez, Nurse Practitioner. DATE OF SERVICE: 05/11/21 SUBJECTIVE: This 66 year old /WHITE F was hospitalized 05/06/21. The patient is resting comfortably. Vapotherm turned down and tolerating well. Seems to be slightly improving. Appetite has improved. Cough resolved. REVIEW OF SYSTEMS: CONSTITUTIONAL: No night sweats. No fatigue, malaise, lethargy. No fever or chills. Weakness. HEENT: Eyes: No visual changes. No eye pain. No eye discharge. ENT: No runny nose. No epistaxis. No sinus pain. No odynophagia. No congestion. RESPIRATORY: Cough, no congestion. No hemoptysis. Shortness of breath. CARDIOVASCULAR: No angina symptoms. No CHF symptoms. No atypical chest pain for CAD. No palpitations. No orthopnea.. GASTROINTESTINAL: No abdominal pain. No nausea or vomiting. No diarrhea or constipation. No hematemesis. No hematochezia. GENITOURINARY: No urgency. No frequency. No dysuria. No hematuria. No obstructive symptoms. No discharge. No pain. No significant abnormal bleeding. MUSCULOSKELETAL: No musculoskeletal pain; no joint swelling. NEUROLOGICAL: Awake, alert, oriented to time, place and person. No headache. No neck pain. No syncope. No seizures. No dizziness. PSYCHIATRIC: Not anxious. No depression. No suicidal thoughts. No homicidal thoughts. SKIN: No rash. No lesions. No wounds. ENDOCRINE: No unexplained weight loss. No weight gain. HEMATOLOGIC/LYMPHATIC: No anemia. No purpura. No petechiae. No prolonged or excessive bleeding. No palpable lymph nodes. PHYSICAL EXAMINATION: GENERAL: The patient is awake, alert and oriented, lying in bed in no distress. VITAL SIGNS: Temperature 96.1 F, Pulse 63, Respiratory Rate 22, BP 111/67, Pulse Ox 90% HEENT: Head normocephalic, atraumatic. Eyes: Extraocular muscles are intact. Pupils are equal, round and reactive to light and accommodation. Ears: No lesions. Nose appeared normal. Throat: No exudate or erythema. NECK: Supple. No JVD, no carotid bruit. No lymphadenopathy or thyromegaly. LUNGS: Diminished breath sounds. Clear to auscultation. Percussion note normal. Chest symmetrical. HEART: S1, S2, no S3. No murmurs. No cyanosis or clubbing. No ascites. Pulse s: Dorsalis pedis and posterior tibial pulses +1 to +2 both sides. ABDOMEN: Soft. Non-tender. Bowel sounds active. No CVA tenderness. No mass felt. EXTREMITIES: No edema. Full range of motion of all extremities, equal. NEUROLOGIC: No focal deficit. Cranial nerves II through XII are grossly intact. No headache. No double vision. SKIN: Not dry. Intact. Turgor-normal. LYMPHATIC: No palpable lymph nodes/no lymphedema. MUSCULOSKELETAL: Normal joints with no swelling. Muscle tone is normal. LAB REVIEW: 05/11/21 05:25 05/11/21 05:25 05/11/21 07:05: Puncture Site R brac, Base Excess 0.2, O2 Saturation 97.4, ABG pH 7.50 H, ABG pCO2 30.0 L, ABG pO2 87.0, ABG HCO3 23.4, ABG Total CO2 24.3 H, Wil Test Y, Hemoglobin 0.8, Oxyhemoglobin 94.8 L, Carboxyhemoglobin 2.5 H, Total Hemoglobin 13.0, O2 Delivery Device Vapotherm, FiO2 % 80.0 05/11/21 05:25: D-Dimer 584.60 H 05/11/21 05:25: Sodium 134.8, Potassium 4.05, Chloride 106.9, Carbon Dioxide 19.6 L, Anion Gap 12.35, BUN 13.1, Creatinine 0.41 L, Estimated GFR (MDRD) 154.00, BUN/Creatinine Ratio 31.95, Glucose 148.3 H, Calcium 8.92, Total Bilirubin 0.94, AST 50.8 H, ALT 70.6 H, Alkaline Phosphatase 54.3, Total Protein 6.69, Albumin 3.48 L, Globulin 3.21, Albumin/Globulin Ratio 1.08 05/11/21 05:25: WBC 8.31, RBC 4.76, Hgb 13.7, Hct 42.9, MCV 90.1, MCH 28.8, MCHC 31.9, RDW Coeff of Sarah 13.0, Plt Count 159 D, Immature Gran % (Auto) 1.2, Neut % (Auto) 76.6 H, Lymph % (Auto) 11.1, [place] % (Auto) 10.6 H, Eos % (Auto) 0.0, Baso % (Auto) 0.5, Neut # (Auto) 6.4, Lymph # (Auto) 0.9, [place] # (Auto) 0.9, Eos # (Auto) 0.0, Baso # (Auto) 0.0, Immature Gran # (Auto) 0.1 05/11/21 05:10: Ferritin 1000.00 H 05/10/21 05:25: Lactate Dehydrogenase 476 H, C-Reactive Prot, Quant 56 H ASSESSMENT: Please see below. 1. COVID pneumonia with acute respiratory 2. Hypertension 3. Generalized weakness. PLAN: 1. Will continue on Vapotherm 2. Continue antibiotics and steroids. Plan and coordination of the patient's care discussed in the presence of Camera Machinist and nurse. SCRIBED BY: CORNEL REA Armature Straightener scribed while in presence of service performed by Dr. Cole/Bisi Montanez APRN on 05/11/21 ([id number])
[2021-05-11] MEDS: ROCEPHIN 1 GM/50 ML D5W 1 GM/50 ML BAG IV SCH (10:34)
--- NOTE | 2021-05-11 13:37 | PN ---
DATE OF SERVICE: 05/10/2021 SUBJECTIVE: 66 year old white female hospitalized with COVID pneumonia, bilateral with respiratory failure. The patient has been on Vapotherm 70% and feeling much better. REVIEW OF SYSTEMS: CONSTITUTIONAL: No night sweats. No fatigue, malaise, lethargy. No fever or chills. HEENT: Eyes: No visual changes. No eye pain. No eye discharge. ENT: No runny nose. No epistaxis. No sinus pain. No sore throat. No odynophagia. No congestion. RESPIRATORY: No cough, no congestion. No hemoptysis. No shortness of breath. CARDIOVASCULAR: No angina symptoms. No CHF symptoms. No atypical chest pain for CAD. No palpitations. No PND. No orthopnea. GASTROINTESTINAL: No abdominal pain. No nausea or vomiting. No diarrhea or constipation. No hematemesis. No hematochezia. Appetite is getting better. GENITOURINARY: No urgency. No frequency. No dysuria. No hematuria. No obstructive symptoms. No discharge. No pain. No significant abnormal bleeding. MUSCULOSKELETAL: No musculoskeletal pain; no joint swelling. NEUROLOGICAL: No headache. No neck pain. No syncope. No seizures. No dizziness. PSYCHIATRIC: Not anxious. No depression. No suicidal thoughts. No homicidal thoughts. SKIN: No rash. No lesions. No wounds. ENDOCRINE: No unexplained weight loss. No weight gain. HEMATOLOGIC/LYMPHATIC: No anemia. No purpura. No petechiae. No prolonged or excessive bleeding. No palpable lymph nodes. PHYSICAL EXAMINATION: VITAL SIGNS: Temperature 97.1, pulse 70, respiratory rate 22, blood pressure 130/76 and pulse ox 88%. The patient has been gone to the bathroom and coming back. HEENT: Head normocephalic, atraumatic. Eyes: Extraocular muscles are intact. Pupils are equal, round and reactive to light and accommodation. Ears: No lesions. Nose appeared normal. Throat: No exudate or erythema. NECK: Supple. No JVD, no carotid bruit. No lymphadenopathy or thyromegaly. LUNGS: Clear to auscultation. Percussion note normal. Chest symmetrical. HEART: S1, S2, no S3. No murmurs. No cyanosis or clubbing. No ascites. Pulses: Dorsalis pedis and posterior tibial pulses +1 to +2 bilaterally. ABDOMEN: Soft. Nontender. Bowel sounds active. No CVA tenderness. No mass felt. EXTREMITIES: No edema. Full range of motion of all extremities, equal. NEUROLOGIC: No focal deficit. Cranial nerves II through XII are grossly intact. No headache. No double vision. SKIN: Not dry. Intact. Turgor - normal. LYMPHATIC: No palpable lymph nodes/no lymphedema. MUSCULOSKELETAL: Normal joints with no swelling. Muscle tone is normal. LABS: Hgb 12.5, hct 37, creatinine 0.4, BUN 11, potassium 4.1. Arterial blood gasses this morning pO2 was 55 with pCO2 31, pH 7.48 on Vapotherm with 70% with 91% saturation. ASSESSMENT: 1. Respiratory failure, stable according to the patient. She is feeling a lot better today. She is not at all short of breath when she was talking to me. She feels fine when she is sleeping on prone position. She feels better with it. Appetite seems to be improving. The patient seems to be improving to some extent. CONDITION: Stable. TIME SPENT: More than 30 minutes. Plan and coordination of the patient's care discussed in the presence of nurse. TAMIA
[2021-05-12 05:02] LABS: ABG O2 HGB 86.4 % (95-100); ABG PH 7.45 (7.35-7.45); BEecf -0.4 (-2.0-3.0); COHb 1.8 (0.5-1.5); HCO3 23.6 (21-28); MetHb 0.6 (0-1.5); TCO2 24.6 (19-24); sO2 86.9 % (94-98); tHb 12.9 g/dl (11.7-17.4)
[2021-05-12] MEDS: VENTOLIN HFA (PER PUFF-WITH SPACER) IH SCH ×4 (05:16→21:05)
[2021-05-12] MEDS: PEPCID PO SCH ×2 (05:46→16:51)
[2021-05-12 06:18] LABS: BASOPHILS % (AUTO) 0.2 % (0.0-3.0); HEMATOCRIT 39.3 % (37.0-47.0); HEMOGLOBIN 13.1 g/dl (12.0-16.0); IMMATURE GRANULOCYTE # (AUTO) 0.2 (0.0-1.0); LYMPHOCYTES % (AUTO) 10.9 (10.0-50.0); MEAN CORPUSCULAR HEMOGLOBIN 29.4 pg (27.0-31.0); MEAN CORPUSCULAR HGB CONC 33.3 (31.8-35.4); MEAN CORPUSCULAR VOLUME 88.1 fl (81.0-99.0); MONOCYTES # (AUTO) 0.9 K/uL (0.4-2.0); MONOCYTES % (AUTO) 9.6 (0-10); NEUTROPHILS % (AUTO) 77.3 % (42.2-75.2); PLATELET COUNT 396 10^3/uL (140-440); RDW COEFFICIENT OF VARIATION 12.6 % (11.6-14.8); RED BLOOD COUNT 4.46 10^6/ul (4.20-5.40); WHITE BLOOD COUNT 9.07 K/ul (4.6-10.2)
[2021-05-12 06:46] LABS: ALBUMIN 3.42 g/dL (3.5-5.0); ALKALINE PHOSPHATASE 56.3 U/L (53-141); BILIRUBIN,TOTAL 0.68 mg/dL (0.2-1.3); BLOOD UREA NITROGEN 14.5 mg/dL (7-17); CALCIUM 9.02 mg/dL (8.4-10.2); CARBON DIOXIDE 26.4 mmol/L (22-30.0); CHLORIDE 105.7 mmol/L (98-107); CREATININE 0.46 mg/dL (0.60-1.30); POTASSIUM 4.26 mmol/L (3.5-5.1); TOTAL PROTEIN 6.65 g/dL (6.3-8.2)
[2021-05-12 07:13] LABS: ERYTHROCYTE SEDIMENTATION RATE 38 mm/hr (0-20)
[2021-05-12 08:34] LABS: ALANINE AMINOTRANSFERASE 124.6 U/L (0-35); ASPARTATE AMINO TRANSFERASE 72.7 U/L (14-36)
[2021-05-12] MEDS: ROCEPHIN 1 GM/50 ML D5W 1 GM/50 ML BAG IV SCH (09:26)
[2021-05-12] MEDS: COZAAR PO SCH (09:27)
[2021-05-12] MEDS: DECADRON IM SCH (09:27)
[2021-05-12] MEDS: ELIQUIS PO SCH ×2 (09:27→20:19)
[2021-05-12] MEDS: DOXYCYCLINE HYCLATE PO SCH ×2 (09:27→20:19)
[2021-05-12] MEDS: ZEBETA PO SCH (09:27)
[2021-05-12] MEDS: SYMBICORT 160-4.5 MCG INHALER IH SCH ×2 (09:27→20:26)
[2021-05-12] MEDS: XANAX PO SCH ×4 (09:30→20:19)
--- NOTE | 2021-05-12 09:41 | PCM.PROG ---
Attending Provider: ATTENDING PROVIDER: Dr. LUIS MANUEL COLE DATE OF SERVICE: 05/12/21 SUBJECTIVE: This 66 year old /WHITE F was hospitalized 05/06/21 with COVID 19 pneumonia with respiratory failure. The patient is according to her feeling better. She was is need of more oxygen concentrate with Vapotherm to maintaining her saturation of 90%. REVIEW OF SYSTEMS: CONSTITUTIONAL: No night sweats. No fatigue, malaise, lethargy. No fever or chills. A lot better. HEENT: Eyes: No visual changes. No eye pain. No eye discharge. ENT: No runny nose. No epistaxis. No sinus pain. No odynophagia. No congestion. RESPIRATORY: No cough, no congestion. No hemoptysis. No shortness of breath. CARDIOVASCULAR: No angina symptoms. No CHF symptoms. No atypical chest pain for CAD. No palpitations. No orthopnea.. GASTROINTESTINAL: No abdominal pain. No nausea or vomiting. No diarrhea or constipation. No hematemesis. No hematochezia. Appetite improved. GENITOURINARY: No urgency. No frequency. No dysuria. No hematuria. No obstructive symptoms. No discharge. No pain. No significant abnormal bleeding. MUSCULOSKELETAL: No musculoskeletal pain; no joint swelling. NEUROLOGICAL: Awake, alert, oriented to time, place and person. No headache. No neck pain. No syncope. No seizures. No dizziness. PSYCHIATRIC: Not anxious. No depression. No suicidal thoughts. No homicidal thoughts. SKIN: No rash. No lesions. No wounds. ENDOCRINE: No unexplained weight loss. No weight gain. HEMATOLOGIC/LYMPHATIC: No anemia. No purpura. No petechiae. No prolonged or excessive bleeding. No palpable lymph nodes. PHYSICAL EXAMINATION: GENERAL: The patient is awake, alert and oriented, lying in bed in no distress. VITAL SIGNS: Temperature 97.4 F, Pulse 60, Respiratory Rate 18, BP 123/81, Pulse Ox 94% HEENT: Head normocephalic, atraumatic. Eyes: Extraocular muscles are intact. Pupils are equal, round and reactive to light and accommodation. Ears: No lesions. Nose appeared normal. Throat: No exudate or erythema. NECK: Supple. No JVD, no carotid bruit. No lymphadenopathy or thyromegaly. LUNGS: Clear to auscultation. Percussion note normal. Chest symmetrical. HEART: S1, S2, no S3. No murmurs. No cyanosis or clubbing. No ascites. Pulses: Dorsalis pedis and posterior tibial pulses +1 to +2 both sides. ABDOMEN: Soft. Non-tender. Bowel sounds active. No CVA tenderness. No mass felt. EXTREMITIES: No edema. Full range of motion of all extremities, equal. NEUROLOGIC: No focal deficit. Cranial nerves II through XII are grossly intact. No headache, no double vision or headache. SKIN: Warm and dry. Intact. Turgor-normal. LYMPHATIC: No palpable lymph nodes/no lymphedema. MUSCULOSKELETAL: Normal joints with no swelling. Muscle tone is normal. LAB REVIEW: 05/12/21 05:48 05/12/21 05:48 05/12/21 05:48: D-Dimer 640.15 H 05/12/21 05:48: Sodium 137.0, Potassium 4.26, Chloride 105.7, Carbon Dioxide 26.4, Anion Gap 9.16, BUN 14.5, Creatinine 0.46 L, Estimated GFR (MDRD) 135.00, BUN/Creatinine Ratio 31.52, Glucose 138.0 H, Calcium 9.02, Ferritin 800.00 H, Total Bilirubin 0.68, AST 75.2 H, ALT 129.6 H D, Alkaline Phosphatase 56.3, Total Protein 6.65, Albumin 3.42 L, Globulin 3.23, Albumin/Globulin Ratio 1.05 05/12/21 05:48: WBC 9.07, RBC 4.46, Hgb 13.1, Hct 39.3, MCV 88.1, MCH 29.4, MCHC 33.3, RDW Coeff of Sarah 12.6, Plt Count 396 D, Immature Gran % (Auto) 2.0, Neut % (Auto) 77.3 H, Lymph % (Auto) 10.9, Gooding % (Auto) 9.6, Eos % (Auto) 0.0, Baso % (Auto) 0.2, Neut # (Auto) 7.0 H, Lymph # (Auto) 1.0, Gooding # (Auto) 0.9, Eos # (Auto) 0.0, Baso # (Auto) 0.0, Immature Gran # (Auto) 0.2, ESR 38 H 05/12/21 04:25: Puncture Site Lrad, Base Excess -0.4, O2 Saturation 86.9 L, ABG pH 7.45, ABG pCO2 34.0 L, ABG pO2 50.0 L*, ABG HCO3 23.6, ABG Total CO2 24.6 H, Wil Test +, Hemoglobin 0.6, Oxyhemoglobin 86.4 L, Carboxyhemoglobin 1.8 H, Total Hemoglobin 12.9, O2 Delivery Device Vapotherm, FiO2 % 80.0 ASSESSMENT: Please see below. 1. Respiratory failure from COVID 19 pneumonia PLAN: 1. Continue Vapotherm 2. Supportive measures 3. Continue steroids and antibiotics 4. Will do a chest x-ray today 5. Maintain low dose of Eliquis Plan and coordination of the patient's care discussed in the presence of Regulation Supervisor and nurse. SCRIBED BY: CORNEL RAE Retail Product Advisor scribed while in presence of service performed by Dr. LUIS MANUEL COLE on 05/12/21 ([id number])
--- NOTE | 2021-05-12 13:20 | DI ---
EXAM: Frontal chest HISTORY: COVID-19 FINDINGS: Compared to 05/06/2021. Cardiomegaly is again suggested. There are mild to moderate bila teral infiltrates, more noticeable since prior study suggesting pneumonia. No pleural fluid or pneum othorax. IMPRESSION: 1. There are mild to moderate bilateral infiltrates, more noticeable since prior study suggesting p neumonia.
[2021-05-13 05:34] LABS: BASOPHILS % (AUTO) 0.3 % (0.0-3.0); EOSINOPHILS % (AUTO) 0.1 % (0.0-7.0); HEMATOCRIT 40.4 % (37.0-47.0); HEMOGLOBIN 13.3 g/dl (12.0-16.0); IMMATURE GRANULOCYTE # (AUTO) 0.4 (0.0-1.0); IMMATURE GRANULOCYTE % (AUTO) 4.1 % (0.0-5.0); LYMPHOCYTES # (AUTO) 1.1 K/uL (0.60-3.4); LYMPHOCYTES % (AUTO) 11.1 (10.0-50.0); MEAN CORPUSCULAR HEMOGLOBIN 28.9 pg (27.0-31.0); MEAN CORPUSCULAR HGB CONC 32.9 (31.8-35.4); MEAN CORPUSCULAR VOLUME 87.6 fl (81.0-99.0); MONOCYTES # (AUTO) 1.1 K/uL (0.4-2.0); MONOCYTES % (AUTO) 10.3 (0-10); NEUTROPHILS # (AUTO) 7.6 K/ul (2.0-6.9); NEUTROPHILS % (AUTO) 74.1 % (42.2-75.2); PLATELET COUNT 439 10^3/uL (140-440); RDW COEFFICIENT OF VARIATION 12.7 % (11.6-14.8); RED BLOOD COUNT 4.61 10^6/ul (4.20-5.40); WHITE BLOOD COUNT 10.29 K/ul (4.6-10.2)
[2021-05-13] MEDS: VENTOLIN HFA (PER PUFF-WITH SPACER) IH SCH ×4 (05:40→20:10)
[2021-05-13] MEDS: PEPCID PO SCH ×2 (05:52→16:37)
[2021-05-13 06:10] LABS: ALBUMIN 3.4 g/dL (3.5-5.0); BILIRUBIN,TOTAL 0.8 mg/dL (0.2-1.3); CREATININE 0.5 mg/dL (0.60-1.30); TOTAL PROTEIN 6.5 g/dL (6.3-8.2)
[2021-05-13 06:35] LABS: ABG O2 HGB 91.9 % (95-100); ABG PH 7.49 (7.35-7.45); BEecf 1.1 (-2.0-3.0); COHb 1.7 (0.5-1.5); HCO3 24.4 (21-28); MetHb 0.8 (0-1.5); TCO2 25.4 (19-24); sO2 93.3 % (94-98); tHb 14.9 g/dl (11.7-17.4)
[2021-05-13 06:41] LABS: ERYTHROCYTE SEDIMENTATION RATE 33 mm/hr (0-20)
[2021-05-13] MEDS: ROCEPHIN 1 GM/50 ML D5W 1 GM/50 ML BAG IV SCH (08:55)
[2021-05-13] MEDS: ELIQUIS PO SCH ×2 (08:55→20:34)
[2021-05-13] MEDS: ZEBETA PO SCH (08:55)
[2021-05-13] MEDS: DOXYCYCLINE HYCLATE PO SCH ×2 (08:55→20:23)
[2021-05-13] MEDS: COZAAR PO SCH (08:55)
[2021-05-13] MEDS: XANAX PO SCH ×4 (08:55→20:23)
[2021-05-13] MEDS: DECADRON IM SCH (09:00)
[2021-05-13] MEDS: SYMBICORT 160-4.5 MCG INHALER IH SCH (09:01)
[2021-05-13] MEDS ORDERED: ELIQUIS PO ONE (13:00)
[2021-05-14] MEDS: VENTOLIN HFA (PER PUFF-WITH SPACER) IH SCH ×4 (05:25→19:15)
[2021-05-14] MEDS: PEPCID PO SCH ×2 (05:35→17:30)
[2021-05-14 05:41] LABS: HEMATOCRIT 40.9 % (37.0-47.0); HEMOGLOBIN 13.4 g/dl (12.0-16.0); MEAN CORPUSCULAR HEMOGLOBIN 28.9 pg (27.0-31.0); MEAN CORPUSCULAR HGB CONC 32.8 (31.8-35.4); MEAN CORPUSCULAR VOLUME 88.3 fl (81.0-99.0); PLATELET COUNT 430 10^3/uL (140-440); RDW COEFFICIENT OF VARIATION 12.7 % (11.6-14.8); RED BLOOD COUNT 4.63 10^6/ul (4.20-5.40); WHITE BLOOD COUNT 9.14 K/ul (4.6-10.2)
[2021-05-14 05:49] LABS: ALANINE AMINOTRANSFERASE 159.5 U/L (0-35); ALBUMIN 3.51 g/dL (3.5-5.0); ALKALINE PHOSPHATASE 59.6 U/L (53-141); BILIRUBIN,TOTAL 0.78 mg/dL (0.2-1.3); BLOOD UREA NITROGEN 14.9 mg/dL (7-17); CALCIUM 9.04 mg/dL (8.4-10.2); CARBON DIOXIDE 29.2 mmol/L (22-30.0); CHLORIDE 103.2 mmol/L (98-107); CREATININE 0.65 mg/dL (0.60-1.30); GLUCOSE 115.2 mg/dL (74-106); POTASSIUM 4.06 mmol/L (3.5-5.1); TOTAL PROTEIN 6.49 g/dL (6.3-8.2)
[2021-05-14 06:06] LABS: ANISOCYTOSIS NOT PRESENT (NOT PRESENT)
[2021-05-14 06:53] LABS: ABG O2 HGB 92.6 % (95-100); ABG PH 7.49 (7.35-7.45); BEecf 1.8 (-2.0-3.0); HCO3 25.1 (21-28); MetHb 0.7 (0-1.5); TCO2 26.1 (19-24)
[2021-05-14] MEDS: COZAAR PO SCH (08:42)
[2021-05-14] MEDS: ROCEPHIN 1 GM/50 ML D5W 1 GM/50 ML BAG IV SCH (09:01)
[2021-05-14] MEDS: SYMBICORT 160-4.5 MCG INHALER IH SCH ×2 (09:01→20:57)
[2021-05-14] MEDS: DECADRON IM SCH (09:01)
[2021-05-14] MEDS: ELIQUIS PO SCH ×2 (09:02→20:27)
[2021-05-14] MEDS: DOXYCYCLINE HYCLATE PO SCH ×2 (09:02→20:27)
[2021-05-14] MEDS: XANAX PO SCH ×4 (09:02→20:27)
[2021-05-14] MEDS: ZEBETA PO SCH (09:02)
[2021-05-15] MEDS: VENTOLIN HFA (PER PUFF-WITH SPACER) IH SCH ×3 (04:45→14:03)
[2021-05-15 05:18] LABS: HEMATOCRIT 40.4 % (37.0-47.0); HEMOGLOBIN 13.2 g/dl (12.0-16.0); MEAN CORPUSCULAR HEMOGLOBIN 28.4 pg (27.0-31.0); MEAN CORPUSCULAR HGB CONC 32.7 (31.8-35.4); MEAN CORPUSCULAR VOLUME 87.1 fl (81.0-99.0); PLATELET COUNT 412 10^3/uL (140-440); RDW COEFFICIENT OF VARIATION 12.5 % (11.6-14.8); RED BLOOD COUNT 4.64 10^6/ul (4.20-5.40); WHITE BLOOD COUNT 10.06 K/ul (4.6-10.2)
[2021-05-15 05:33] LABS: ALBUMIN 3.3 g/dL (3.5-5.0); BILIRUBIN,TOTAL 0.7 mg/dL (0.2-1.3); CALCIUM 8.8 mg/dL (8.4-10.2); CREATININE 0.6 mg/dL (0.60-1.30); POTASSIUM 4.2 mmol/L (3.5-5.1); TOTAL PROTEIN 6.5 g/dL (6.3-8.2)
[2021-05-15 05:40] LABS: ANISOCYTOSIS NOT PRESENT (NOT PRESENT)
[2021-05-15] MEDS: PEPCID PO SCH (06:13)
[2021-05-15 07:06] LABS: ABG PH 7.47 (7.35-7.45)
[2021-05-15 07:07] LABS: BEecf 0.3 (-2.0-3.0)
[2021-05-15 07:08] LABS: ABG O2 HGB 91.9 % (95-100); HCO3 24 (21-28); MetHb 0.8 (0-1.5); sO2 92.2 % (94-98)
[2021-05-15] MEDS: COZAAR PO SCH (09:04)
[2021-05-15] MEDS: DECADRON IM SCH (09:04)
[2021-05-15] MEDS: ZEBETA PO SCH (09:04)
[2021-05-15] MEDS: XANAX PO SCH ×2 (09:04→13:50)
[2021-05-15] MEDS: DOXYCYCLINE HYCLATE PO SCH (09:04)
[2021-05-15] MEDS: ELIQUIS PO SCH (09:05)
[2021-05-15] MEDS: ROCEPHIN 1 GM/50 ML D5W 1 GM/50 ML BAG IV SCH ×2 (09:05→09:49)
[2021-05-15] MEDS: SYMBICORT 160-4.5 MCG INHALER IH SCH (09:06)
[2021-05-15] MEDS ORDERED: LIDOCAINE HCL 1% SDV IM STA (09:19)
[2021-05-15] MEDS ORDERED: ROCEPHIN 1 GM VIAL IM ONE (09:19)
--- NOTE | 2021-05-15 09:50 | PCM.PROG ---
Attending Provider: ATTENDING PROVIDER: Dr. LUIS MANUEL COLE This patient is seen with Bisi Montanez, Nurse Practitioner. DATE OF SERVICE: 05/15/21 SUBJECTIVE: This 66 year old /WHITE F was hospitalized 05/06/21. The patient is resting comfortably. The patient is very adamant about going home. Oxygen seem to be stable. Eating well and up and about. Plan is for her to go home with the daughter. She will require 24 hour oxygen. REVIEW OF SYSTEMS: CONSTITUTIONAL: No night sweats. Fatigue. No fever or chills. Weakness. HEENT: Eyes: No visual changes. No eye pain. No eye discharge. ENT: No runny nose. No epistaxis. No sinus pain. No odynophagia. No congestion. RESPIRATORY: No cough, no congestion. No hemoptysis. Shortness of breath. CARDIOVASCULAR: No angina symptoms. No CHF symptoms. No atypical chest pain for CAD. No palpitations. No orthopnea.. GASTROINTESTINAL: No abdominal pain. No nausea or vomiting. No diarrhea or constipation. No hematemesis. No hematochezia. GENITOURINARY: No urgency. No frequency. No dysuria. No hematuria. No obstructive symptoms. No discharge. No pain. No significant abnormal bleeding. MUSCULOSKELETAL: No musculoskeletal pain; no joint swelling. NEUROLOGICAL: Awake, alert, oriented to time, place and person. No headache. No neck pain. No syncope. No seizures. No dizziness. PSYCHIATRIC: Not anxious. No depression. No suicidal thoughts. No homicidal thoughts. SKIN: No rash. No lesions. No wounds. ENDOCRINE: No unexplained weight loss. No weight gain. HEMATOLOGIC/LYMPHATIC: No anemia. No purpura. No petechiae. No prolonged or excessive bleeding. No palpable lymph nodes. PHYSICAL EXAMINATION: GENERAL: The patient is awake, alert and oriented, sitting in bed in no distress. VITAL SIGNS: Temperature 97.1 F, Pulse 64, Respiratory Rate 18, BP 107/64, Pulse Ox 97% HEENT: Head normocephalic, atraumatic. Eyes: Extraocular muscles are intact. Pupils are equal, round and reactive to light and accommodation. Ears: No lesions. Nose appeared normal. Throat: No exudate or erythema. NECK: Supple. No JVD, no carotid bruit. No lymphadenopathy or thyromegaly. LUNGS: Diminished breath sounds. Clear to auscultation. Percussion note normal. Chest symmetrical. HEART: S1, S2, no S3. No murmurs. No cyanosis or clubbing. No ascites. Pulses: Dorsalis pedis and posterior tibial pulses +1 to +2 both sides. ABDOMEN: Soft. Non-tender. Bowel sounds active. No CVA tenderness. No mass felt. EXTREMITIES: No edema. Full range of motion of all extremities, equal. NEUROLOGIC: No focal deficit. Cranial nerves II through XII are grossly intact. No headache. No double vision. SKIN: Not dry. Intact. Turgor-normal. LYMPHATIC: No palpable lymph nodes/no lymphedema. MUSCULOSKELETAL: Normal joints with no swelling. Muscle tone is normal. LAB REVIEW: 05/15/21 04:36 05/15/21 04:36 05/15/21 05:30: Puncture Site Rbrach, Base Excess 0.3, O2 Saturation 92.2 L, ABG pH 7.47 H, ABG pCO2 33.0 L, ABG pO2 60.0 L, ABG HCO3 24, ABG Total CO2 25.0 H, Wil Test +, Hemoglobin 0.8, Oxyhemoglobin 91.9 L, Carboxyhemoglobin 2.0 H, Total Hemoglobin 13.0, O2 Delivery Device Nc, Oxygen Liter Flow 6.00 05/15/21 04:36: D-Dimer 620.18 H 05/15/21 04:36: Sodium 137.0, Potassium 4.20, Chloride 103.0, Carbon Dioxide 30.0, Anion Gap 8.20, BUN 16.0, Creatinine 0.60, Estimated GFR (MDRD) 99.00, BU N/Creatinine Ratio 26.66, Glucose 117.0 H, Calcium 8.80, Total Bilirubin 0.70, AST 49.0 H, ALT 146.0 H, Alkaline Phosphatase 55.0, Total Protein 6.50, Albumin 3.30 L, Globulin 3.20, Albumin/Globulin Ratio 1.03 05/15/21 04:36: WBC 10.06, RBC 4.64, Hgb 13.2, Hct 40.4, MCV 87.1, MCH 28.4, MCHC 32.7, RDW Coeff of Sarah 12.5, Plt Count 412, Neutrophils % (Manual) 73.0, Band Neutrophils % 2.0, Lymphocytes % (Manual) 23.0, Monocytes % (Manual) 1.0, Metamyelocytes % 1.0, Anisocytosis Not present 05/14/21 05:07: D-Dimer 716.15 H ASSESSMENT: Please see below. 1. Bilateral COVID pneumonia with acute respiratory failure 2. Generalized weakness 3. Hypertension PLAN: 1. Discharge home 2. Prednisone 20mg BID for 3 days then daily for 4 days 3. Doxycycline 100mg BID for 5 days 4. Will continue on Eliquis 5mg BID for 30 days 5. Symbicort and Albuterol inhalers for 30 days 6. Continue Pepcid for 30 days 7. Will need arrange for home oxygen. 8. The patient will need Home Health for nursing. 9. Advised to buy home pulse oximeter 10. See her back in the office next week. Plan and coordination of the patient's care discussed in the presence of Cardiology Fellow and nurse. SCRIBED BY: CORNEL REA Zinc Chloride Operator scribed while in presence of service performed by Dr. Cole/Bisi Montanez APRN on 05/15/21 ([id number])
[2021-05-15 14:35] VITALS: BP 112/78; TEMP 97.8
--- NOTE | 2021-05-15 14:53 | CM.DICTOOL ---
ADMISSION: 05/06/21 16:24 DISCHARGE: MAY 15, 2021 DATE OF SERVICE: 05/15/21 FINAL DIAGNOSIS COVID PNEUMONIA ACUTE RESPIRATORY FAILURE HYPERTENSION ANXIETY OBESITY BILATERAL CATARACT EXTRACTION TKR, LEFT ECHOCARDIOGRAM: 05/15/21 LAST VITALS Temp Pulse Resp BP Pulse Ox 97.1 F L 60 18 107/64 94 L 05/15/21 05:40 05/15/21 08:00 05/15/21 05:40 05/15/21 05:40 05/15/21 13:00 TAKE THESE MEDICATIONS AT HOME Albuterol Sulfate (Albuterol Sulfate (Ventolin Hfa) 18 Gm 1 Puff With Spacer) 2 puff IH RTTID AMALIA (NEW RX FOR 30 DAYS) Last Admin: 05/15/21 10:17 Dose: 2 puff Documented by: Alprazolam (Alprazolam 0.25 Mg Tablet) 0.25 mg PO TID PRN (NEW RX) Last Admin: 05/15/21 13:50 Dose: 0.25 mg Documented by: Apixaban (Apixaban 5 Mg Tab) 5 mg PO BID AMALIA (NEW RX; SAMPLES GIVEN FROM OFFICE) Last Admin: 05/15/21 09:05 Dose: 5 mg Documented by: Bisoprolol Fumarate (Bisoprolol Fumarate 5 Mg Tablet) 5 mg PO DAILY AMALIA Last Admin: 05/15/21 09:04 Dose: 5 mg Documented by: Budesonide/Formoterol Fumarate (Budesonide/Formoterol Fumarate 160/4.5 Mcg Inhaler) 2 puff IH BID AMALIA Last Admin: 05/15/21 09:06 Dose: 2 puff (COMPLETE HOSPITAL SUPPLY) Documented by: TERALEMARTINE INHALER: START AFTER COMPLETING SYMBICORT USE PUFF DAILY Doxycycline Hyclate (Doxycycline Hyclate 100 Mg Capsule) 100 mg PO Q12HR AMALIA (NEW RX FOR 5 DAYS) Stop: 05/16/21 09:29 Last Admin: 05/15/21 09:04 Dose: 100 mg Documented by: Famotidine (Famotidine 20 Mg Tablet) 40 mg PO BIDAC AMALIA (NEW RX FOR 30 DAYS) Last Admin: 05/15/21 06:13 Dose: 40 mg Documented by: Losartan Potassium (Losartan Potassium 100 Mg Tablet) 100 mg PO DAILY AMALIA Last Admin: 05/15/21 09:04 Dose: 100 mg Documented by: PREDNISONE 20 MG BID FOR 3 DAYS, THEN 20 MG DAILY FOR 4 DAYS (NEW RX) ALLERGIES No Known Allergies Allergy (Unverified 03/31/19 13:38) DISCONTINUED MEDICATIONS VALIUM 2 MG PRN NEW PRESCRIPTIONS: ELIQUIS 5 MG BID FOR 30 DAYS (OFFICE SAMPLES GIVEN) XANAX 0.25 MG TID PRN PREDNISONE 20 MG BID FOR 3 DAYS, THEN 20 MG DAILY FOR 4 DAYS DOXYCYCLINE HYCLATE 100 MG BID FOR 5 DAYS PEPCID 40 MG BID BEFORE MEALS FOR 30 DAYS ALBUTEROL HFA 2 PUFFS TID SYMBICORT USE 2 PUFFS BID (HOSPITAL ISSUED SENT HOME) TRELEGY INHALER USE (OFFICE SAMPLE GIVEN) SMOKING: NOT APPLICABLE DISEASE SPECIFIC EDUCATION: COVID PNEUMONIA USE OF OXYGEN PRESCRIPTIONS APPOINTMENT ACTIVITY LAB REVIEW: 05/15/21 04:36 05/15/21 04:36 05/15/21 05:30: Puncture Site Rbrach, Base Excess 0.3, O2 Saturation 92.2 L, ABG pH 7.47 H, ABG pCO2 33.0 L, ABG pO2 60.0 L, ABG HCO3 24, ABG Total CO2 25.0 H, Wil Test +, Hemoglobin 0.8, Oxyhemoglobin 91.9 L, Carboxyhemoglobin 2.0 H, Total Hemoglobin 13.0, O2 Delivery Device Nc, Oxygen Liter Flow 6.00 05/15/21 04:36: D-Dimer 620.18 H 05/15/21 04:36: Sodium 137.0, Potassium 4.20, Chloride 103.0, Carbon Dioxide 30.0, Anion Gap 8.20, BUN 16.0, Creatinine 0.60, Estimated GFR (MDRD) 99.00, BUN/Creatinine Ratio 26.66, Glucose 117.0 H, Calcium 8.80, Total Bilirubin 0.70, AST 49.0 H, ALT 146.0 H, Alkaline Phosphatase 55.0, Total Protein 6.50, Albumin 3.30 L, Globulin 3.20, Albumin/Globulin Ratio 1.03 05/15/21 04:36: WBC 10.06, RBC 4.64, Hgb 13.2, Hct 40.4, MCV 87.1, MCH 28.4, MCHC 32.7, RDW Coeff of Sarah 12.5, Plt Count 412, Neutrophils % (Manual) 73.0, Band Neutrophils % 2.0, Lymphocytes % (Manual) 23.0, Monocytes % (Manual) 1.0, Metamyelocytes % 1.0, Anisocytosis Not present PLAN: DISCHARGE HOME WITH DAUGHTER (WILL BE GOING TO HER DAUGHTER'S HOME) DIET: REGULAR DIET TOLERATED LIQUIDS ENCOURAGED ACTIVITY: GRADUALLY RESUME TOLERATED ALLOW FOR FREQUENT REST PERIODS DURING THE DAY USE OXYGEN CONTINUOUS AT 6 LITERS; DO NOT ATTEMPT TO WEAN UNTIL INSTRUCTED PULSE OXIMETER GIVEN BY CARDIOPULMONARY; USE INSTRUCTED; CHECK OXYGEN SATURATION SEVERAL TIMES DAILY AND IF FEELING SHORT OF AIR FOLLOW INSTRUCTIONS GIVEN BY CARDIOPULMONARY GOAL IS SATURATION 89-90% OR ABOVE HOME HEALTH REFERRAL FOR NURSING ASSESSMENT; VITAL SIGNS, PULSE OXIMETRY, RESPIRATORY ASSESSMENT AN APPOINTMENT IS SCHEDULED ON April AT 1:[address] COLE/MENDEZ BYRNE APRN/ARSALAN YEUNG APRN CODE STATUS: DO NOT INTUBATE; CPR ONLY MS. TIMMONS IS ALERT AND ORIENTED X 4. SHE IS AGREEABLE TO PLANS FOR DISCHARGE TODAY. SHE IS PLANNING TO GO HOME WITH HER DAUGHTER, CARMEN PELAYO. I HAVE SPOKEN TO THE DAUGHTER AND SHE IS AGREEABLE. WILL BE DISCHARGING HOME WITH OXYGEN AT 6 LITERS CONTINUOUS PER NASAL CANNULA. SHE IS AGREEABLE. THE OXYGEN HAS BEEN ARRANGED THRU [facility] IN [place], [place]. MS. TIMMONS IS INDEPENDENT WITH ACTIVITIES OF DAILY LIVING. SHE IS CONTINENT OF BOWEL AND BLADDER. DIARRHEA HAS RESOLVED. APPETITE IS FAIR AT 25-50%. LIQUID INTAKE IS GOOD. SKIN IS INTACT. MS. TIMMONS IS AMBULATORY IN THE ROOM WITH USE OF OXYGEN AT 6 LITERS. SHE DOES NOT REQUIRE STAFF ASSISTANCE OR USE OF AN ASSISTIVE DEVICE WITH AMBULATION. GAIT IS STEADY. SHE CONTINUES TO EXPERIENCE SHORTNESS OF AIR WITH EXERTION. MS TIMMONS IS AGREEABLE TO HOME HEALTH REFERRAL FOR NURSING ONLY. MD MENDEZ PHAM A PRN
--- NOTE | 2021-05-16 09:23 | ECHO2D ---
Date of Exam: 05/15/2021 Ordering Physician: DR. LUIS MANUEL COLE Room #: 104 Reason for Echo: RESPIRATORY FAILURE, SHORT OF AIR M-Mode Normal Adult Results LV Dimensions Normal Adult Results AoV Opening excursions >1.6 >1.6 LVEDD-base- 3.5-5.8 4.6 Ao root dimensions 2.0-3.7 3.8 LVESD-base- 3.1-4.6 L. Atrium dimensions 1.9-3.8 4.3 Post. Wall thickness 0.8-1.1 1.2 IV septum (thickness) 0.7-1.2 1.3 Post. Wall excursion 0.72-1.3 NORMAL Septal motion NORMAL Systolic motion R. Ventricular cavity 1.5-2.0 NORMAL LVEF 60% 63% Paradoxical septal wall motion NORMAL 2-D : 2-D M Mode Echocardiogram was performed using apical four chamber and left parasternal long and short axis views. Mitral, tricuspid and aortic valves appear to be normal. Contractility of the left ventricle seems to be normal, so is the cavity size. ENLARGED LEFT ATRIAL CAVITY SIZE. Aortic root appears to be normal. There is no pericardial effusion. There is no thrombus noted in the left ventricle or left atrial cavity. M-MODE: MV: NORMAL AV: NORMAL TV: NORMAL PV: CHAMBER SIZE: ENLARGED LEFT ATRIAL CAVITY WALL MOTION: NORMAL PERICARDIUM: NORMAL INTERPRETATION: 1. LEFT VENTRICLE HYPERTROPHY WITH ENLARGED LEFT ATRIAL CAVITY 2. NORMAL LEFT VENTRICLE CONTRACTILITY 3. NORMAL VALVES MTDD
--- NOTE | 2021-05-16 11:41 | PN ---
DATE OF SERVICE: 05/11/2021 SUBJECTIVE: The patient continues to feel good.The patient was seen and examined with the Nurse Practitioner. The patient is on high flow oxygen 70% with saturation more than 96%. The patient has no other fever or chills, PND or orthopnea. Appetite has improved. The strength has improved. TIME SPENT: More than 30 minutes. Plan and coordination of the patient's care discussed in the presence of nurse. TAMIA
--- NOTE | 2021-05-16 12:52 | PN ---
DATE OF SERVICE: 05/13/2021 SUBJECTIVE: 66 year old white female hospitalized with COVID pneumonia bilateral and diarrhea. The patient's diarrhea and dehydration seems to have subsided. Appetite seems to be improving. She is able to breath deep. She had event with passing away today, this morning. She is taking it well so far. I had conference with entire family member, the daughter and sisters and we communicated with the patient. The patient is going to have a meeting with the daughter tomorrow, approved by the hospital administration. REVIEW OF SYSTEMS: CONSTITUTIONAL: No night sweats. No fatigue, malaise, lethargy. No fever or chills. HEENT: Eyes: No visual changes. No eye pain. No eye discharge. ENT: No runny nose. No epistaxis. No sinus pain. No sore throat. No odynophagia. No congestion. RESPIRATORY: No cough, no congestion. No hemoptysis. No shortness of breath. She is breathing deeper CARDIOVASCULAR: No angina symptoms. No CHF symptoms. No atypical chest pain for CAD. No palpitations. No PND. No orthopnea. GASTROINTESTINAL: No abdominal pain. No nausea or vomiting. No diarrhea or constipation. No hematemesis. No hematochezia. GENITOURINARY: No urgency. No frequency. No dysuria. No hematuria. No obstructive symptoms. No discharge. No pain. No significant abnormal bleeding. MUSCULOSKELETAL: No musculoskeletal pain; no joint swelling. NEUROLOGICAL: No headache. No neck pain. No syncope. No seizures. No dizziness. PSYCHIATRIC: Not anxious. No depression. No suicidal thoughts. No homicidal thoughts. SKIN: No rash. No lesions. No wounds. ENDOCRINE: No unexplained weight loss. No weight gain. HEMATOLOGIC/LYMPHATIC: No anemia. No purpura. No petechiae. No prolonged or excessive bleeding. No palpable lymph nodes. PHYSICAL EXAMINATION: GENERAL: The patient is VITAL SIGNS: Temperature 97.8, pulse 66, respiratory rate 18, blood pressure 132/86 and pulse ox 93% on 100% high flow oxygen. HEENT: Head normocephalic, atraumatic. Eyes: Extraocular muscles are intact. Pupils are equal, round and reactive to light and accommodation. Ears: No lesions. Nose appeared normal. Throat: No exudate or erythema. NECK: Supple. No JVD, no carotid bruit. No lymphadenopathy or thyromegaly. LUNGS: Decreased breath sounds but clear to auscultation. Percussion note normal. Chest symmetrical. HEART: S1, S2, no S3. No murmurs. No cyanosis or clubbing. No ascites. Pulses: Dorsalis pedis and posterior tibial pulses +1 to +2 bilaterally. ABDOMEN: Soft. Nontender. Bowel sounds active. No CVA tenderness. No mass felt. EXTREMITIES: No edema. Full range of motion of all extremities, equal. NEUROLOGIC: No focal deficit. Cranial nerves II through XII are grossly intact. No headache. No double vision. SKIN: Not dry. Intact. Turgor - normal. LYMPHATIC: No palpable lymph nodes/no lymphedema. MUSCULOSKELETAL: Normal joints with no swelling. Muscle tone is normal. LABS: Hgb 13.3, hct 40, WBC 10,000 normal differential, creatinine 0.5, BUN 15, potassium 4. D-Dimer is more or less stable. Approximately 900 function one of them has improved the other one has gone up some but still within acceptable range with no jaundice. CRP is stayed into 50s. Creatinine level is elevated. LDH is elevated ASSESSMENT: 1. COVID 19 pneumonia with respiratory failure PLAN: 1. Monitor the markers 2. Increase Eliquis to 5mg twice a day 3. Continue Dexamethasone 4. The patient has declined Remdesivir. 5. Antibiotics Doxycycline and Rocephin ADDENDUM: The patient is coughing up clear sputum. She says that she is able to take a deep breath. The patient is advised to be up and about in the room. Encourage the patient to eat. The patient's blood gasses this morning showed pO2 62, pCO2 32, with pH 7.49 with 94% saturation on 100% vapotherm. The patient's pulse and telemetry strips fluctuates from 55-70 throughout her stay in the hospital along with her blood pressure being practically normal with no fluctuations. Calf muscles are non-tender. No swelling of the legs noted. There is no chest pain. TIME SPENT: More than 30 minutes. Plan and coordination of the patient's care discussed in the presence of nurse. TAMIA
--- NOTE | 2021-05-16 12:56 | PN ---
DATE OF SERVICE: 05/14/2021 SUBJECTIVE: 66 year old female white female hospitalized with COVID 19 bilateral pneumonia and respiratory failure. The patient still is in respiratory failure but the condition has improved. She is now 6 liters of oxygen with oxygen saturation ranging from 88% to 95% depending upon her activity. REVIEW OF SYSTEMS: CONSTITUTIONAL: No night sweats. No fatigue, malaise, lethargy. No fever or chills. HEENT: Eyes: No visual changes. No eye pain. No eye discharge. ENT: No runny nose. No epistaxis. No sinus pain. No sore throat. No odynophagia. No congestion. RESPIRATORY: No cough, no congestion. No hemoptysis. No shortness of breath. CARDIOVASCULAR: No angina symptoms. No CHF symptoms. No atypical chest pain for CAD. No palpitations. No PND. No orthopnea. GASTROINTESTINAL: No abdominal pain. No nausea or vomiting. No diarrhea or constipation. No hematemesis. No hematochezia. GENITOURINARY: No urgency. No frequency. No dysuria. No hematuria. No obstructive symptoms. No discharge. No pain. No significant abnormal bleeding. MUSCULOSKELETAL: No musculoskeletal pain; no joint swelling. NEUROLOGICAL: No headache. No neck pain. No syncope. No seizures. No dizziness. PSYCHIATRIC: Not anxious. No depression. No suicidal thoughts. No homicidal thoughts. SKIN: No rash. No lesions. No wounds. ENDOCRINE: No unexplained weight loss. No weight gain. HEMATOLOGIC/LYMPHATIC: No anemia. No purpura. No petechiae. No prolonged or excessive bleeding. No palpable lymph nodes. PHYSICAL EXAMINATION: VITAL SIGNS: Temperature 97.3, pulse 60, respiratory rate 18, blood pressure 120/70 and pulse ox 94% on 50% Vapotherm. HEENT: Head normocephalic, atraumatic. Eyes: Extraocular muscles are intact. Pupils are equal, round and reactive to light and accommodation. Ears: No lesions. Nose appeared normal. Throat: No exudate or erythema. NECK: Supple. No JVD, no carotid bruit. No lymphadenopathy or thyromegaly. LUNGS: Clear to auscultation. Percussion note normal. Chest symmetrical. HEART: S1, S2, no S3. No murmurs. No cyanosis or clubbing. No ascites. Pulses: Dorsalis pedis and posterior tibial pulses +1 to +2 bilaterally. ABDOMEN: Soft. Nontender. Bowel sounds active. No CVA tenderness. No mass felt. EXTREMITIES: No edema. Full range of motion of all extremities, equal. NEUROLOGIC: No focal deficit. Cranial nerves II through XII are grossly intact. No headache. No double vision. SKIN: Not dry. Intact. Turgor - normal. LYMPHATIC: No palpable lymph nodes/no lymphedema. MUSCULOSKELETAL: Normal joints with no swelling. Muscle tone is normal. LABS: ABG today showed pO2 61 with pCO2 33 with pH 7.49 with 93% saturation on 50% Vapotherm. The patient's D-dimer and CPR are lower than yesterday. Hgb 13.4, hct 40, WBC 9,000 normal differential, creatine 0.6, BUN 14, potassium 4. ASSESSMENT: 1. The patient's condition is improving, respiratory failure seems to be improving. PLAN: 1. Continue oxygen therapy 2. Convert the patient to 5-6 liters and see how she does 3. As mentioned above the patient's oxygen saturation fluctuated from 88-95%. The patient had taken a shower and she also met her daughter. The patient's passes away in the hospital. She is hold up really well. Very motivated. CONDITION: Stable. Improving. TIME SPENT: More than 30 minutes. Plan and coordination of the patient's care discussed in the presence of nurseMelony CANTRELL
--- NOTE | 2021-05-16 13:14 | DS ---
DATE OF SERVICE: 05/15/21 DATE OF SERVICE: 05/15/21 FINAL DIAGNOSIS: COVID PNEUMONIA ACUTE RESPIRATORY FAILURE HYPERTENSION ANXIETY OBESITY BILATERAL CATARACT EXTRACTION TKR, LEFT ECHOCARDIOGRAM: 05/15/21 LAST VITALS: Temp Pulse Resp BP Pulse Ox 97.1 F L 60 18 107/64 94 L 05/15/21 05:40 05/15/21 08:00 05/15/21 05:40 05/15/21 05:40 05/15/21 13:00 DISCHARGE INSTRUCTIONS: DISCHARGE HOME WITH DAUGHTER (WILL BE GOING TO HER DAUGHTER'S HOME). USE OXYGEN CONTINUOUS AT 6 LITERS; DO NOT ATTEMPT TO WEAN UNTIL INSTRUCTED. PULSE OXIMETER GIVEN BY CARDIOPULMONARY; USE INSTRUCTED; CHECK OXYGEN SATURATION SEVERAL TIMES DAILY AND IF FEELING SHORT OF AIR. FOLLOW INSTRUCTIONS GIVEN BY CARDIOPULMONARY. GOAL IS SATURATION 89-90% OR ABOVE. HOME HEALTH REFERRAL FOR NURSING ASSESSMENT; VITAL SIGNS, PULSE OXIMETRY, RESPIRATORY ASSESSMENT. AN APPOINTMENT IS SCHEDULED ON April AT 1:[address] COLE/MENDEZ BYRNE APRN/ARSALAN YEUNG APRN. CODE STATUS: DO NOT INTUBATE; CPR ONLY TAKE THESE MEDICATIONS AT HOME: Albuterol Sulfate (Albuterol Sulfate (Ventolin Hfa) 18 Gm 1 Puff With Spacer) 2 puff IH RTTID AMALIA (NEW RX FOR 30 DAYS) Last Admin: 05/15/21 10:17 Dose: 2 puff Documented by: Alprazolam (Alprazolam 0.25 Mg Tablet) 0.25 mg PO TID PRN (NEW RX) Last Admin: 05/15/21 13:50 Dose: 0.25 mg Documented by: Apixaban (Apixaban 5 Mg Tab) 5 mg PO BID AMALIA (NEW RX; SAMPLES GIVEN FROM OFFICE) Last Admin: 05/15/21 09:05 Dose: 5 mg Documented by: Bisoprolol Fumarate (Bisoprolol Fumarate 5 Mg Tablet) 5 mg PO DAILY AMALIA Last Admin: 05/15/21 09:04 Dose: 5 mg Documented by: Budesonide/Formoterol Fumarate (Budesonide/Formoterol Fumarate 160/4.5 Mcg Inhaler) 2 puff IH BID AMALIA Last Admin: 05/15/21 09:06 Dose: 2 puff (COMPLETE HOSPITAL SUPPLY) Documented by: TRELEGY INHALER: START AFTER COMPLETING SYMBICORT USE PUFF DAILY Doxycycline Hyclate (Doxycycline Hyclate 100 Mg Capsule) 100 mg PO Q12HR AMALIA (NEW RX FOR 5 DAYS) Stop: 05/16/21 09:29 Last Admin: 05/15/21 09:04 Dose: 100 mg Documented by: Famotidine (Famotidine 20 Mg Tablet) 40 mg PO BIDAC AMALIA (NEW RX FOR 30 DAYS) Last Admin: 05/15/21 06:13 Dose: 40 mg Documented by: Losartan Potassium (Losartan Potassium 100 Mg Tablet) 100 mg PO DAILY AMALIA Last Admin: 05/15/21 09:04 Dose: 100 mg Documented by: PREDNISONE 20 MG BID FOR 3 DAYS, THEN 20 MG DAILY FOR 4 DAYS (NEW RX) ALLERGIES: No Known Allergies Allergy (Unverified 03/31/19 13:38) DISCONTINUED MEDICATIONS: VALIUM 2 MG PRN NEW PRESCRIPTIONS: ELIQUIS 5 MG BID FOR 30 DAYS (OFFICE SAMPLES GIVEN) XANAX 0.25 MG TID PRN PREDNISONE 20 MG BID FOR 3 DAYS, THEN 20 MG DAILY FOR 4 DAYS DOXYCYCLINE HYCLATE 100 MG BID FOR 5 DAYS PEPCID 40 MG BID BEFORE MEALS FOR 30 DAYS ALBUTEROL HFA 2 PUFFS TID SYMBICORT USE 2 PUFFS BID (HOSPITAL ISSUED SENT HOME) TRELEGY INHALER USE (OFFICE SAMPLE GIVEN) SMOKING: NOT APPLICABLE DISEASE SPECIFIC EDUCATION: COVID PNEUMONIA USE OF OXYGEN PRESCRIPTIONS APPOINTMENT ACTIVITY LAB REVIEW: 05/15/21 04:36 05/15/21 04:36 05/15/21 05:30: Puncture Site Rbrach, Base Excess 0.3, O2 Saturation 92.2 L, ABG pH 7.47 H, ABG pCO2 33.0 L, ABG pO2 60.0 L, ABG HCO3 24, ABG Total CO2 25.0 H, Wil Test +, Hemoglobin 0.8, Oxyhemoglobin 91.9 L, Carboxyhemoglobin 2.0 H, Total Hemoglobin 13.0, O2 Delivery Device Nc, Oxygen Liter Flow 6.00 05/15/21 04:36: D-Dimer 620.18 H 05/15/21 04:36: Sodium 137.0, Potassium 4.20, Chloride 103.0, Carbon Dioxide 30.0, Anion Gap 8.20, BUN 16.0, Creatinine 0.60, Estimated GFR (MDRD) 99.00, BUN/Creatinine Ratio 26.66, Glucose 117.0 H, Calcium 8.80, Total Bilirubin 0.70, AST 49.0 H, ALT 146.0 H, Alkaline Phosphatase 55.0, Total Protein 6.50, Albumin 3.30 L, Globulin 3.20, Albumin/Globulin Ratio 1.03 05/15/21 04:36: WBC 10.06, RBC 4.64, Hgb 13.2, Hct 40.4, MCV 87.1, MCH 28.4, MCHC 32.7, RDW Coeff of Sarah 12.5, Plt Count 412, Neutrophils % (Manual) 73.0, Band Neutrophils % 2.0, Lymphocytes % (Manual) 23.0, Monocytes % (Manual) 1.0, Metamyelocytes % 1.0, Anisocytosis Not present DIET: REGULAR DIET TOLERATED LIQUIDS ENCOURAGED ACTIVITY: GRADUALLY RESUME TOLERATED ALLOW FOR FREQUENT REST PERIODS DURING THE DAY HOSPITAL COURSE: The patient was hospitalized on 05/06/2021 with COVID pneumonia initial symptoms were nausea and vomiting and diarrhea which lasted for 7 days before she came to the emergency room. She was COVID positive. The patient was dehydrated and she was given IV fluids and she was started on 6mg IV Dexamethasone along with Doxycycline and Rocephin. The patient was also put on inhalers, Proair two puffs four times a day and Symbicort two puffs twice a day daily. The patient declined Remdesivir. Blood gasses were monitored. Initially the patient's pO2 66 with pCO2 31 with pH 7.4 with 2 liters of oxygen with the saturation of 93% on admission. Blood gasses deteriorated after a day or two and she was down to pO2 of 49 with pCO2 31 with pH 7.46 with 86% saturation on room air she put on 5 liters of cannula and was maintained to 93-94%. On 10 of May of saturation and respiratory status deteriorated and she was on Vapotherm 70, 80 and 100% to keep the saturation over 90%. The last couple of days that the patient has been weaned off and she is now on 5-6 liters of oxygen with oxygen saturation fluctuating with activity 88% to resting 94-95%. She is up and about looking good. Appetite has steadily improved. Her mental status has always been normal. Markers were monitored like D-dimer, LDH, CPR all were improving. Her echocardiogram showed normal LV contractility, normal valvular structure. On physical exam she had decreased breath sounds but good air entry otherwise practically no other abnormal findings. Her calf are non-tender. No swelling of the legs were noted. She didn't have any indication of thromboembolic phenomenon. She was right from the beginning was on 2.5mg twice a day Eliquis which was increased to 5mg twice a day with some rise in D-Dimer. In any case the patient was discharged home in stable condition to be followed as an outpatient. She is going to be on Prednisone 20mg twice a day for three days and then after that she is going to be on 20mg for 3 days. She is going to be followed as an outpatient. She is going to be on 5-6 liters of oxygen at home. Home Health Care Nurse is going to check on her. The patient already got her daughter, Deepali to be living with her. The patient is advised to wear oxygen all the time and monitor her oximetry. The patient at the time of discharge had practically not cough, congestion. She was also given antibiotics to be taken for 7 days after discharge along with inhalers. The patient had abnormal liver profile which more or less stay stable. No jaundice was noted. The patient's lab tests will be followed as an outpatient on followup visit. Until she is seen in the office in 5-7 days the patient is strongly advised to rest with continuous oxygen all the time. Any drop in saturation the patient is strongly advised to go to the emergency room. Daughter has been made aware of it. We have been in communicate with the daughter on a daily basis for last 4-5 days. CONDITION: Stable. TIME SPENT: More than 60 minutes. TAMIA
--- NOTE | 2021-05-16 13:15 | PN ---
12/11: Level 5 12/12: Intermediate 12/13: Intermediate 12/14: Intermediate 12/15: Intermediae 12/16: Intermediate 12/17: Intermediate 12/18: Intermediate 12/19: Intermediate 12/20: D as in discharge MTDD
== END 2021-05-15 15:48 | disposition home or self-care (01) | DRG 177 ==
LOC: ED 10:37 → MEDSURG B 16:24 → MEDSURG A 05-14 17:00
PROVIDERS: ADMIT Internal Medicine; ATTEND Internal Medicine
DX: R19.7 Diarrhea, unspecified; U07.1 COVID-19; Z79.899 Other long term (current) drug therapy; J96.00 Acute respiratory failure, unspecified whether with hypoxia or hypercapnia; Z99.81 Dependence on supplemental oxygen; J12.82 Pneumonia due to coronavirus disease 2019; I10 Essential (primary) hypertension